=== PATIENT | male | born 1935 | race African-American/Black ===

== ENCOUNTER 2017-08-11 18:17 | Emergency (ER) | payer OTHER ==
[~2017-08-11] VITALS: Ht 162.6 cm; Wt 74.4 kg
[~2017-08-11 18:17] MED LIST: ALBU0.63 NEB; BREO ELLIPTA 21 EACH INH; DOXY100T PO; FLUT1DIS3 INH; HYDR-2758 PO; IPRA3AMP NEB; LEVO500T59 PO; METH4TAB2 PO; NAPR-695 PO; OMAL150V SQ; PRED-220 PO; PRED20TA PO; PROAIR HFA8.5 GM IH; TAMS0.4C97 PO
[2017-08-11] MEDS ORDERED: IPRATRPIUM/ALBUTEROL 0.5/2.5MG 3 ML NEBU. NEB ONE (18:45)
[2017-08-11] MEDS ORDERED: methylPREDNISolone SOD SUCC PF 125 MG/2 ML VIAL. IV ONE (18:45)
[2017-08-11 19:08] LABS: BASO % 1 % (0-3); EOS % 10 % (0-3); HEMATOCRIT 37.3 % (39.0-53.0); HEMOGLOBIN 12.3 g/dL (13.0-17.5); LYMPH # 1.4 x10^3/uL (1.0-4.8); LYMPH % 29 % (24-48); MEAN CORPUSCULAR HEMOGLOBIN 29 pg (25-35); MEAN CORPUSCULAR HGB CONC 33 g/dL (31-37); MEAN CORPUSCULAR VOLUME 89 fL (79-100); MONO % 12 % (0-9); NEUT % 49 % (31-73); PLATELET COUNT 216 x10^3/uL (140-400); RED BLOOD COUNT 4.21 x10^6/uL (4.30-5.70); RED CELL DISTRIBUTION WIDTH 14.2 % (11.5-14.5); WHITE BLOOD COUNT 4.7 x10^3/uL (4.0-11.0)
[2017-08-11 19:22] LABS: CALCIUM 9.3 mg/dL (8.5-10.1); CREATININE 0.9 mg/dL (0.7-1.3); GFR 98.2; POTASSIUM 3.3 mmol/L (3.5-5.1)
[2017-08-11 19:30] VITALS: BP 136/70
[2017-08-11] MEDS ORDERED: PRED50TA PO (19:37)
[2017-08-11] MEDS ORDERED: BUDE10.2 IH (19:37)
--- NOTE | 2017-08-11 19:38 | PHYS DOC ---
Past Medical History Past Medical History: COPD, Other Additional Past Medical Histor: prostate Past Surgical History: Other Additional Past Surgical Histo: right hand; colonoscopy Alcohol Use: None Drug Use: None Adult General Chief Complaint Chief Complaint: SHORTNESS OF BREATH HPI HPI Patient is a 82 year old gentleman who presents here today complaining of shortness of breath. Patient has a past medical history significant for asthma. Patient has any hypertension diabetes liver kidney problems. Patient denies any prior abdominal or chest surgeries. Patient does have a history of prostate problems in the past. Patient reports that over the last several days has been having increasing shortness of breath despite utilizing his medications. Patient reports he ran out of his Symbicort approximately 3 days ago. He reports he saw his PCP approximately one week ago was started on antibiotics reports today he had no improvement. He came to the ER for further evaluation. Patient reports she's had a nonproductive cough for approximately 3-4 days. Patient has any fevers shakes chills nausea vomiting or diarrhea. Patient denies any lower extremity edema. Patient has any history of PE or DVT in the past. Patient has any orthopnea or PND that's the ordinary for himself. Patient reports symptoms he is having today are highly consistent with his prior asthma exacerbations. Patient is denying any chest discomfort. Patient reports that he does feel short of breath and describes a fullness in his chest that he describes as similar to what he's had when he's been short of breath in the past with his asthma. Patient denies any pain radiating down his left arm and jaw or back. Patient has any diaphoresis. Review of Systems Review of Systems Review of systems Constitutional: Denies fever or chills Eyes: Denies change in visual acuity, redness, or eye pain HENT: Denies nasal congestion or sore throat Current Medications Current Medications Current Medications Medications (Trade) Dose Ordered Sig/Ailyn Start Time Stop Time Status Last Admin Dose Admin Albuterol/ Ipratropium (Duoneb) 9 ml 1X ONCE 08/11/17 18:45 08/11/17 18:59 DC 08/11/17 19:13 9 ML Methylprednisolone Sodium Succinate (SOLU-Medrol 125MG VIAL) 125 mg 1X ONCE 08/11/17 18:45 08/11/17 18:59 DC 08/11/17 19:07 125 MG Allergies Allergies Allergies Coded Allergies Type Severity Reaction Last Updated Verified Penicillins Adverse Reaction Severe seizures 07/19/17 Yes Physical Exam Physical Exam Review of systems Constitutional: Denies fever or chills Eyes: Denies change in visual acuity, redness, or eye pain HENT: Denies nasal congestion or sore throat Physical exam Constitutional: Well developed, well nourished, no acute distress, non-toxic appearance. HENT: Normocephalic, atraumatic, bilateral external ears normal, oropharynx moist, no oral exudates, nose normal. Eyes: PERRLA, EOMI, conjunctiva normal, no discharge. Neck: Normal range of motion, no tenderness, supple, no stridor. Cardiovascular:Heart rate regular rhythm, Lungs & Thorax: Diffuse inspiratory and expiratory wheezing. Abdomen: Bowel sounds normal, soft, no tenderness, no masses, no pulsatile masses. Skin: Warm, dry, no erythema, no rash. Back: No tenderness, no CVA tenderness. Extremities: No tenderness, no cyanosis, no clubbing, ROM intact, no edema. Neurologic: Alert and oriented X 3, normal motor function, normal sensory function, no focal deficits noted. Psychologic: Affect normal, judgement normal, mood normal. Current Patient Data Vital Signs Vital Signs Date Time Temp Pulse Resp B/P (MAP) Pulse Ox O2 Delivery O2 Flow Rate FiO2 08/11/17 19:14 92 Room Air 08/11/17 18:24 97.8 92 26 172/84 (113) 97.8 Lab Values Laboratory Tests Test 08/11/17 18:50 White Blood Count 4.7 x10^3/uL (4.0-11.0) Red Blood Count 4.21 x10^6/uL (4.30-5.70) L Hemoglobin 12.3 g/dL (13.0-17.5) L Hematocrit 37.3 % (39.0-53.0) L Mean Corpuscular Volume 89 fL (79-100) Mean Corpuscular Hemoglobin 29 pg (25-35) Mean Corpuscular Hemoglobin Concent 33 g/dL (31-37) Red Cell Distribution Width 14.2 % (11.5-14.5) Platelet Count 216 x10^3/uL (140-400) Neutrophils (%) (Auto) 49 % (31-73) Lymphocytes (%) (Auto) 29 % (24-48) Monocytes (%) (Auto) 12 % (0-9) H Eosinophils (%) (Auto) 10 % (0-3) H Basophils (%) (Auto) 1 % (0-3) Neutrophils # (Auto) 2.3 x10^3uL (1.8-7.7) Lymphocytes # (Auto) 1.4 x10^3/uL (1.0-4.8) Monocytes # (Auto) 0.6 x10^3/uL (0.0-1.1) Eosinophils # (Auto) 0.4 x10^3/uL (0.0-0.7) Basophils # (Auto) 0.0 x10^3/uL (0.0-0.2) Sodium Level 144 mmol/L (136-145) Potassium Level 3.3 mmol/L (3.5-5.1) L Chloride Level 105 mmol/L (98-107) Carbon Dioxide Level 31 mmol/L (21-32) Anion Gap 8 (6-14) Blood Urea Nitrogen 13 mg/dL (8-26) Creatinine 0.9 mg/dL (0.7-1.3) Estimated GFR (Cockcroft-Gault) 98.2 BUN/Creatinine Ratio 14 (6-20) Glucose Level 108 mg/dL (70-99) H Calcium Level 9.3 mg/dL (8.5-10.1) Total Bilirubin Pending Aspartate Amino Transferase (AST) Pending Alanine Aminotransferase (ALT) Pending Alkaline Phosphatase Pending Total Protein Pending Albumin Pending Albumin/Globulin Ratio Pending Laboratory Tests 08/11/17 18:50 Laboratory Tests 08/11/17 18:50 EKG EKG []EKG reveals normal sinus rhythm at a heart rate of [address]-T wave abnormalities no evidence of ST elevation VT as interpreted by ER physician. Chest x-ray reveals normal heart size no infiltrates or effusions. Lungs are hyperinflated consistent with COPD. As interpreted by LENO Galeas Radiology/Procedures Radiology/Procedures [] Course & Med Decision Making Course & Med Decision Making Pertinent Labs and Imaging studies reviewed. (See chart for details) []This is an 82-year-old otherwise healthy gentleman who presents here today secondary to an asthma exacerbation. Patient did receive DuoNeb's 3 as well as sign Medrol IV in the ER with significant relief in his discomfort and shortness of breath. Patient reports he currently feels better than his baseline. Patient does not feel that admission is necessary at this time and is requesting to be discharged home now. Patient be discharged home with prescription for Symbicort and instructions to follow-up with primary care physician within one to 2 days for reevaluation. Patient understands to return the ER if his shortness of breath returns. Patient does not have any evidence of be consistent with VT, PE, CHF. Dragon Disclaimer Dragon Disclaimer This electronic medical record was generated, in whole or in part, using a voice recognition dictation system. Departure Departure Impression: Primary Impression: COPD exacerbation Disposition: HOME, SELF-CARE Condition: IMPROVED Referrals: Brayan LOPEZ MD (PCP) Patient Instructions: Chronic Obstructive Pulmonary Disease Exacerbation Scripts Prednisone (PREDNISONE) 50 Mg Tablet 1 TAB PO DAILY, #5 TAB Prov: ANI HOLM MD 08/11/17 Budesonide/Formoterol Fumarate (SYMBICORT 160-4.5 MCG INHALER) 10.2 Gm Hfa.aer.ad 2 PUFF IH BID, #1 INHALER 5 Refills Prov: ANI HOLM MD 08/11/17 ANI HOLM MD Aug 11, 2017 19:38
[2017-08-11 19:40] LABS: ALBUMIN 3.6 g/dL (3.4-5.0); ALBUMIN/GLOBULIN RATIO 0.8 (1.0-1.7); TOTAL BILIRUBIN 0.5 mg/dL (0.2-1.0); TOTAL PROTEIN 7.9 g/dL (6.4-8.2)
--- NOTE | 2017-08-12 06:26 | EKG ---
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
--- NOTE | 2017-08-12 09:47 | RAD ---
EXAM: Chest 2 views. HISTORY: Chest pain and cough. COMPARISON: 01/18/2016. FINDINGS: Frontal and lateral views of the chest are obtained. There are no confluent infiltrates. Hyperinflation is consistent with chronic obstructive pulmonary disease. There is no pneumothorax or pleural effusion. The heart is not enlarged. IMPRESSION: 1. Chronic obstructive pulmonary disease. No confluent infiltrates.
== END 2017-08-11 19:49 | disposition home or self-care (01) ==
LOC: ER 18:17
DX: J44.1 Chronic obstructive pulmonary disease with (acute) exacerbation (principal); Z88.0 Allergy status to penicillin
CPT/HCPCS: 36415; 71020; 80053; 84484; 85025; 93005; 94640; 96374; 99285; J2930; J7620

== ENCOUNTER 2017-10-03 15:59 | Emergency (ER) | payer OTHER ==
[~2017-10-03] VITALS: Ht 162.6 cm; Wt 74.8 kg
[~2017-10-03 15:59] MED LIST changes: +BUDE10.2 IH; +PRED50TA PO
[2017-10-03] MEDS ORDERED: IV NORMAL SALINE 1000ML BAG 1,000 ML IV SCH (16:28)
[2017-10-03] MEDS ORDERED: methylPREDNISolone SOD SUCC PF 125 MG/2 ML VIAL. IV ONE (16:30)
[2017-10-03] MEDS ORDERED: IPRATRPIUM/ALBUTEROL 0.5/2.5MG 3 ML NEBU. NEB ONE (16:30)
[2017-10-03 16:36] LABS: BASO % 1 % (0-3); EOS % 12 % (0-3); HEMATOCRIT 42.2 % (39.0-53.0); HEMOGLOBIN 13.6 g/dL (13.0-17.5); LYMPH # 1.6 x10^3/uL (1.0-4.8); LYMPH % 29 % (24-48); MEAN CORPUSCULAR HEMOGLOBIN 29 pg (25-35); MEAN CORPUSCULAR HGB CONC 32 g/dL (31-37); MEAN CORPUSCULAR VOLUME 90 fL (79-100); MONO % 9 % (0-9); NEUT % 49 % (31-73); PLATELET COUNT 242 x10^3/uL (140-400); RED BLOOD COUNT 4.71 x10^6/uL (4.30-5.70); RED CELL DISTRIBUTION WIDTH 15.4 % (11.5-14.5); WHITE BLOOD COUNT 5.4 x10^3/uL (4.0-11.0)
--- NOTE | 2017-10-03 16:39 | PHYS DOC ---
Past Medical History Past Medical History: COPD, Other Additional Past Medical Histor: enlarged prostate Past Surgical History: Other Additional Past Surgical Histo: right hand; colonoscopy Additional Information: quit smoking 25 years ago Alcohol Use: None Drug Use: None Adult General Chief Complaint Chief Complaint: SHORTNESS OF BREATH HPI HPI 82-year-old male with a history of COPD no longer smokes now presents the emergency department complaining of increased shortness of breath and wheezing. Patient uses 2 L home O2 as a baseline with which she's been compliant. Over the last 2 days he's had worsening wheezing with occasional cough. Patient denies significant productive cough or fever. He has no chest pain.. Patient feels recent wet weather may have triggered his COPD. No fevers chills sweats or shaking chills. Other than shortness of breath and wheezing patient otherwise feels well. Review of Systems Review of Systems Constitutional: Denies fever or chills [] Eyes: Denies change in visual acuity, redness, or eye pain [] HENT: Denies nasal congestion or sore throat [] Respiratory: As above per history of present illness Cardiovascular: No additional information not addressed in HPI [] GI: Denies abdominal pain, nausea, vomiting, bloody stools or diarrhea [] : Denies dysuria or hematuria [] Musculoskeletal: Denies back pain or joint pain [] Integument: Denies rash or skin lesions [] Neurologic: Denies headache, focal weakness or sensory changes [] Endocrine: Denies polyuria or polydipsia [] All other systems were reviewed and found to be within normal limits, except as documented in this note. Current Medications Current Medications Current Medications Medications (Trade) Dose Ordered Sig/Ailyn Start Time Stop Time Status Last Admin Dose Admin Albuterol/ Ipratropium (Duoneb) 3 ml 1X ONCE 10/03/17 16:30 10/03/17 16:32 DC 10/03/17 16:38 3 ML Methylprednisolone Sodium Succinate (SOLU-Medrol 125MG VIAL) 125 mg 1X ONCE 10/03/17 16:30 10/03/17 16:32 DC 10/03/17 17:01 125 MG Sodium Chloride 1,000 ml @ 999 mls/hr Q1H1M 10/03/17 16:28 10/04/17 16:27 10/03/17 17:01 999 MLS/HR Allergies Allergies Allergies Coded Allergies Type Severity Reaction Last Updated Verified Penicillins Adverse Reaction Severe seizures 09/23/17 Yes Physical Exam Physical Exam 82-year-old male mild tachypnea and bilateral bronchospasm with no rails rubs or rhonchi. 94% on baseline 2 L home O2. No clinical fever supple neck no tachycardia benign abdomen normal extremities with no edema and a nonfocal neurologic exam Constitutional: Well developed, well nourished, no acute distress, non-toxic appearance. [] HENT: Normocephalic, atraumatic, bilateral external ears normal, oropharynx moist, no oral exudates, nose normal. [] Eyes: PERRLA, EOMI, conjunctiva normal, no discharge. [] Neck: Normal range of motion, no tenderness, supple, no stridor. [] Cardiovascular:Heart rate regular rhythm, no murmur [] Lungs & Thorax: As above Abdomen: Bowel sounds normal, soft, no tenderness, no masses, no pulsatile masses. [] Skin: Warm, dry, no erythema, no rash. [] Back: No tenderness, no CVA tenderness. [] Extremities: No tenderness, no cyanosis, no clubbing, ROM intact, no edema. [] Neurologic: Alert and oriented X 3, normal motor function, normal sensory function, no focal deficits noted. [] Psychologic: Affect normal, judgement normal, mood normal. [] Current Patient Data Vital Signs Vital Signs Date Time Temp Pulse Resp B/P (MAP) Pulse Ox O2 Delivery O2 Flow Rate FiO2 10/03/17 16:40 92 Room Air 10/03/17 16:10 97.7 88 28 169/96 (120) 97.7 Lab Values Laboratory Tests Test 10/03/17 16:25 White Blood Count 5.4 x10^3/uL (4.0-11.0) Red Blood Count 4.71 x10^6/uL (4.30-5.70) Hemoglobin 13.6 g/dL (13.0-17.5) Hematocrit 42.2 % (39.0-53.0) Mean Corpuscular Volume 90 fL (79-100) Mean Corpuscular Hemoglobin 29 pg (25-35) Mean Corpuscular Hemoglobin Concent 32 g/dL (31-37) Red Cell Distribution Width 15.4 % (11.5-14.5) H Platelet Count 242 x10^3/uL (140-400) Neutrophils (%) (Auto) 49 % (31-73) Lymphocytes (%) (Auto) 29 % (24-48) Monocytes (%) (Auto) 9 % (0-9) Eosinophils (%) (Auto) 12 % (0-3) H Basophils (%) (Auto) 1 % (0-3) Neutrophils # (Auto) 2.7 x10^3uL (1.8-7.7) Lymphocytes # (Auto) 1.6 x10^3/uL (1.0-4.8) Monocytes # (Auto) 0.5 x10^3/uL (0.0-1.1) Eosinophils # (Auto) 0.6 x10^3/uL (0.0-0.7) Basophils # (Auto) 0.0 x10^3/uL (0.0-0.2) Sodium Level 141 mmol/L (136-145) Potassium Level 3.9 mmol/L (3.5-5.1) Chloride Level 104 mmol/L (98-107) Carbon Dioxide Level 30 mmol/L (21-32) Anion Gap 7 (6-14) Blood Urea Nitrogen 6 mg/dL (8-26) L Creatinine 0.8 mg/dL (0.7-1.3) Estimated GFR (Cockcroft-Gault) 112.5 Glucose Level 90 mg/dL (70-99) Calcium Level 10.1 mg/dL (8.5-10.1) Troponin I Quantitative < 0.017 ng/mL (0.000-0.055) Laboratory Tests 10/03/17 16:25 Laboratory Tests 10/03/17 16:25 EKG EKG EKG with normal sinus rhythm at 80 normal axis no STEMI interpreted by me[] Radiology/Procedures Radiology/Procedures [] Course & Med Decision Making Course & Med Decision Making Pertinent Labs and Imaging studies reviewed. (See chart for details) Signs and symptoms consistent with exacerbation of COPD in well-appearing patient with mild tachypnea no hypoxia an episode of bronchospasm typical for him. Steroids administered as well as nebulized therapy. Full workup pending and patient is being hydrated. We'll follow clinically and patient feels improved adequately to his baseline for outpatient treatment he'll be referred for outpatient follow-up with his doctor tomorrow. We'll prescribe prednisone and he will continue established therapy as needed. [] Dragon Disclaimer Dragon Disclaimer This electronic medical record was generated, in whole or in part, using a voice recognition dictation system. Departure Departure Impression: Primary Impression: COPD exacerbation Disposition: 01 HOME, SELF-CARE Condition: IMPROVED Referrals: Brayan LOPEZ MD (PCP) Additional Instructions: You've been experiencing an attack of your COPD. Your symptoms have improved with nebulized therapy and steroids. Rest and drink plenty of fluids. Wear your oxygen as previously prescribed. We've given you and antibiotic prescription called Zithromax to cover for the possibility of an early infection contributing to your wheezing and symptoms. This would be appropriate coverage for bronchitis pneumonia or atypical pneumonia also called walking pneumonia. Your chest x-ray showed no acute findings today and the remainder of your results were reassuring as well finish prednisone as prescribed once a day for 5 days starting tomorrow and follow-up with your doctor tomorrow as well. Return immediately for new severe worsening symptoms Scripts Prednisone (PREDNISONE) 50 Mg Tablet 1 TAB PO DAILY, #5 TAB Prov: NAIMA PADRON MD 10/03/17 Azithromycin (AZITHROMYCIN TABLET) 250 Mg Tablet 1 PKG PO UD, #6 TAB Take 2 pills the first day and one pill a day for the following 4 days Prov: NAIMA PADRON MD 10/03/17 NAIMA PADRON MD Oct 03, 2017 16:39
--- NOTE | 2017-10-03 16:52 | RAD ---
Portable chest, 10/03/2017: History: Shortness of breath Comparison is made to a study from 08/11/2017. The heart size and pulmonary vascularity are normal. No pulmonary infiltrates are seen. There is no evidence of pleural fluid. IMPRESSION: No acute cardiopulmonary abnormality is detected.
[2017-10-03 16:53] LABS: CALCIUM 10.1 mg/dL (8.5-10.1); CREATININE 0.8 mg/dL (0.7-1.3); GFR 112.5; POTASSIUM 3.9 mmol/L (3.5-5.1)
[2017-10-03] MEDS ORDERED: PRED50TA PO (17:56)
[2017-10-03] MEDS ORDERED: AZIT250T6 PO (17:56)
[2017-10-03 18:13] VITALS: BP 151/80
--- NOTE | 2017-10-04 06:29 | EKG ---
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
== END 2017-10-03 18:06 | disposition home or self-care (01) ==
LOC: ER 15:59
DX: J44.1 Chronic obstructive pulmonary disease with (acute) exacerbation (principal); N40.0 Benign prostatic hyperplasia without lower urinary tract symptoms; Z87.891 Personal history of nicotine dependence; Z88.0 Allergy status to penicillin
CPT/HCPCS: 36415; 71010; 80048; 84484; 85025; 93005; 94250; 94640; 96361; 96374; 99285; J2930; J7030; J7620

== ENCOUNTER 2017-11-25 13:06 | Inpatient (IN) | payer OTHER ==
[2017-11-25 13:41] LABS: BASO % 0 % (0-3); EOS % 0 % (0-3); HEMATOCRIT 41.6 % (39.0-53.0); HEMOGLOBIN 13.4 g/dL (13.0-17.5); LYMPH # 0.3 x10^3/uL (1.0-4.8); LYMPH % 5 % (24-48); MEAN CORPUSCULAR HEMOGLOBIN 29 pg (25-35); MEAN CORPUSCULAR HGB CONC 32 g/dL (31-37); MEAN CORPUSCULAR VOLUME 89 fL (79-100); MONO # 0.5 x10^3/uL (0.0-1.1); MONO % 8 % (0-9); NEUT # 6.3 x10^3uL (1.8-7.7); NEUT % 88 % (31-73); PLATELET COUNT 263 x10^3/uL (140-400); RED BLOOD COUNT 4.67 x10^6/uL (4.30-5.70); RED CELL DISTRIBUTION WIDTH 14.4 % (11.5-14.5); WHITE BLOOD COUNT 7.2 x10^3/uL (4.0-11.0)
[2017-11-25 13:50] LABS: ADD MAN DIFF? YES; ANION GAP 12 (6-14); BLOOD UREA NITROGEN 11 mg/dL (8-26); BUN/CREATININE RATIO 9 (6-20); CALCIUM 8.9 mg/dL (8.5-10.1); CARBON DIOXIDE 25 mmol/L (21-32); CHLORIDE 101 mmol/L (98-107); CREATININE 1.2 mg/dL (0.7-1.3); GFR 70.5; GLUCOSE 111 mg/dL (70-99); POTASSIUM 3.9 mmol/L (3.5-5.1); SODIUM 138 mmol/L (136-145)
[2017-11-25 13:56] LABS: ALBUMIN 3.3 g/dL (3.4-5.0); ALBUMIN/GLOBULIN RATIO 0.7 (1.0-1.7); ALK PHOS 65 U/L (46-116); ALT (SGPT) 12 U/L (16-63); AST (SGOT) 17 U/L (15-37); INR 1.1 (0.8-1.1); MAGNESIUM 1.7 mg/dL (1.8-2.4); PARTIAL THROMBOPLASTIN TIME 32 SEC (24-38); PROTHROMBIN TIME PATIENT 13.5 SEC (11.7-14.0); TOTAL BILIRUBIN 0.4 mg/dL (0.2-1.0)
[2017-11-25 14:00] LABS: TROPONINI < 0.017 ng/mL (0.000-0.055)
[2017-11-25 14:00] LABS: D-DIMER 0.39 ug/mlFEU (0.00-0.50)
[2017-11-25 14:02] LABS: NT-PRO BNP 110 pg/mL (0-449)
[2017-11-25] MEDS: methylPREDNISolone SOD SUCC PF 125 MG/2 ML VIAL. IV (14:11)
[2017-11-25] MEDS: ALBUTEROL SULFATE 2.5 MG/3 ML NEBU. NEB (14:12)
[2017-11-25] MEDS: IPRATRPIUM/ALBUTEROL 0.5/2.5MG 3 ML NEBU. NEB ×2 (14:13→23:00)
[2017-11-25 15:07] LABS: INFLUENZA A PATIENT NEGATIVE (NEGATIVE); INFLUENZA B PATIENT NEGATIVE (NEGATIVE); OBC FLU VALID
[2017-11-25] MEDS ORDERED: ONDANSETRON PF 4 MG/2 ML VIAL. IV (16:00)
[2017-11-25] MEDS: ALBUTEROL SULFATE 2.5 MG/3 ML NEBU. CONT NEB (16:51)
[2017-11-25] MEDS: HYDROcodone/APAP 5/325MG 1 TAB TABLET PO (17:03)
[2017-11-25] MEDS: FLUTICASONE 50MCG/NASAL SPRAY 16GM BOTTLE. NS (17:04)
[2017-11-25 17:15] LABS: % BANDS 7 % (0-9); % EOS 1 % (0-5); % LYMPHS 5 % (24-48); % MONOS 4 % (0-10); % SEGS 83 % (35-66); PLT ESTIMATE ADEQUATE (ADEQUATE)
[2017-11-26] MEDS: HYDROcodone/APAP 5/325MG 1 TAB TABLET PO (02:38)
[2017-11-26 04:27] LABS: ADD MAN DIFF? NO
[2017-11-26 04:30] LABS: BASO % 0 % (0-3); EOS % 0 % (0-3); HEMATOCRIT 38.7 % (39.0-53.0); HEMOGLOBIN 12.4 g/dL (13.0-17.5); LYMPH # 0.7 x10^3/uL (1.0-4.8); LYMPH % 7 % (24-48); MEAN CORPUSCULAR HEMOGLOBIN 29 pg (25-35); MEAN CORPUSCULAR HGB CONC 32 g/dL (31-37); MEAN CORPUSCULAR VOLUME 89 fL (79-100); MONO # 0.4 x10^3/uL (0.0-1.1); MONO % 5 % (0-9); NEUT # 8.6 x10^3uL (1.8-7.7); NEUT % 88 % (31-73); PLATELET COUNT 232 x10^3/uL (140-400); RED BLOOD COUNT 4.36 x10^6/uL (4.30-5.70); RED CELL DISTRIBUTION WIDTH 14.3 % (11.5-14.5); WHITE BLOOD COUNT 9.7 x10^3/uL (4.0-11.0)
[2017-11-26 05:03] LABS: ANION GAP 10 (6-14); BLOOD UREA NITROGEN 19 mg/dL (8-26); CARBON DIOXIDE 27 mmol/L (21-32); CHLORIDE 101 mmol/L (98-107); CREATININE 1.1 mg/dL (0.7-1.3); GFR 77.9; GLUCOSE 166 mg/dL (70-99); POTASSIUM 4.4 mmol/L (3.5-5.1); SODIUM 138 mmol/L (136-145)
[2017-11-26] MEDS ORDERED: IPRATRPIUM/ALBUTEROL 0.5/2.5MG 3 ML NEBU. (06:03)
[2017-11-26] MEDS: IPRATRPIUM/ALBUTEROL 0.5/2.5MG 3 ML NEBU. NEB ×4 (06:10→19:36)
[2017-11-26] MEDS ORDERED: DEXTROSE 50% 25 GM / 50ML DISP.SYRIN. IV (08:45)
[2017-11-26] MEDS: ZOLPIDEM 5 MG TABLET. PO ×2 (10:52→20:36)
[2017-11-26] MEDS: CLOBETASOL EMOLLIENT 0.05% TOPICAL CREAM 15GM TUBE. TP ×2 (11:00→20:36)
[2017-11-26 11:13] LABS: POC GLUCOSE 132 mg/dL (70-99)
[2017-11-26] MEDS: INSULIN ASPART 300 UNITS/3 ML INSULN.PEN SQ ×2 (11:34→17:11)
[2017-11-26] MEDS: methylPREDNISolone SOD SUCC PF 40 MG/ML VIAL. IV ×2 (11:43→20:36)
[2017-11-26] MEDS: BUDESONIDE 0.5 MG/2 ML NEBU. NEB ×2 (12:15→19:36)
[2017-11-26 16:40] LABS: POC GLUCOSE 182 mg/dL (70-99)
[2017-11-26] MEDS: TAMSULOSIN 0.4 MG CAP.ER.24H. PO (20:36)
[2017-11-27] MEDS: ALBUTEROL SULFATE 2.5 MG/3 ML NEBU. NEB (00:19)
[2017-11-27] MEDS: methylPREDNISolone SOD SUCC PF 40 MG/ML VIAL. IV ×2 (05:41→20:32)
[2017-11-27 08:15] LABS: POC GLUCOSE 153 mg/dL (70-99)
[2017-11-27] MEDS ORDERED: TAMSULOSIN 0.4 MG CAP.ER.24H. PO (09:00)
[2017-11-27] MEDS: CLOBETASOL EMOLLIENT 0.05% TOPICAL CREAM 15GM TUBE. TP ×2 (09:02→20:32)
[2017-11-27] MEDS: INSULIN ASPART 300 UNITS/3 ML INSULN.PEN SQ ×3 (09:08→17:25)
[2017-11-27] MEDS: IPRATRPIUM/ALBUTEROL 0.5/2.5MG 3 ML NEBU. NEB ×4 (09:13→19:14)
[2017-11-27] MEDS: BUDESONIDE 0.5 MG/2 ML NEBU. NEB ×2 (09:14→19:10)
[2017-11-27 11:25] LABS: POC GLUCOSE 155 mg/dL (70-99)
[2017-11-27] MEDS: BENZOCAINE/MENTHOL LOZENGE. PO ×2 (13:28→17:09)
[2017-11-27 16:32] LABS: POC GLUCOSE 170 mg/dL (70-99)
[2017-11-27] MEDS: AZITHROMYCIN 250 MG TABLET. PO (17:09)
[2017-11-27] MEDS: LACTOBACILLUS RHAMNOSUS GG 1 CAPSULE. PO (20:32)
[2017-11-27] MEDS: ZOLPIDEM 5 MG TABLET. PO (20:32)
[2017-11-27] MEDS: TAMSULOSIN 0.4 MG CAP.ER.24H. PO (20:32)
[2017-11-27 21:09] LABS: POC GLUCOSE 141 mg/dL (70-99)
[2017-11-28] MEDS: IPRATRPIUM/ALBUTEROL 0.5/2.5MG 3 ML NEBU. NEB (07:25)
[2017-11-28] MEDS: BUDESONIDE 0.5 MG/2 ML NEBU. NEB (07:25)
[2017-11-28 07:58] LABS: POC GLUCOSE 131 mg/dL (70-99)
[2017-11-28] MEDS: INSULIN ASPART 300 UNITS/3 ML INSULN.PEN SQ (08:00)
[2017-11-28] MEDS: HYDROcodone/APAP 5/325MG 1 TAB TABLET PO (08:42)
[2017-11-28] MEDS: AZITHROMYCIN 250 MG TABLET. PO (08:43)
[2017-11-28] MEDS: LACTOBACILLUS RHAMNOSUS GG 1 CAPSULE. PO (08:43)
[2017-11-28] MEDS: methylPREDNISolone SOD SUCC PF 40 MG/ML VIAL. IV (08:43)
[2017-11-28] MEDS: CLOBETASOL EMOLLIENT 0.05% TOPICAL CREAM 15GM TUBE. TP (08:47)
[2017-11-28] MEDS ORDERED: MAG HYDROX/ALUMINUM HYD/SIMETH 30 ML ORAL.SUSP PO (09:00)
== END 2017-11-28 11:37 | disposition home or self-care (01) | DRG 189 ==
LOC: ER 13:06 → ED HOLD 16:28 → 5 NORTH 21:16
DX: J96.21 Acute and chronic respiratory failure with hypoxia (principal); J44.1 Chronic obstructive pulmonary disease with (acute) exacerbation; Z99.81 Dependence on supplemental oxygen; K59.00 Constipation, unspecified; N40.0 Benign prostatic hyperplasia without lower urinary tract symptoms; M19.90 Unspecified osteoarthritis, unspecified site; T38.0X5A Adverse effect of glucocorticoids and synthetic analogues, initial encounter; Y92.89 Other specified places as the place of occurrence of the external cause; Z87.891 Personal history of nicotine dependence; Z80.9 Family history of malignant neoplasm, unspecified; Z79.52 Long term (current) use of systemic steroids; Z88.0 Allergy status to penicillin
CPT/HCPCS: 36415; 71045; 80048; 80053; 82962; 83735; 83880; 84484; 85007; 85025; 85379; 85610; 85730; 87804; 87804-59; 93005; 94618; 94640; 94644; 94760; 96374; 99285; 99285-25; J1815; J2920; J2930; J7613; J7620; J7626; Q0144

== ENCOUNTER 2018-01-19 23:10 | Emergency (ER) | payer OTHER ==
[2018-01-19 23:27] LABS: ADD MAN DIFF? NO
[2018-01-19 23:31] LABS: BASO # 0.1 x10^3/uL (0.0-0.2); BASO % 1 % (0-3); EOS # 0.6 x10^3/uL (0.0-0.7); EOS % 11 % (0-3); HEMOGLOBIN 14.4 g/dL (13.0-17.5); LYMPH # 1.7 x10^3/uL (1.0-4.8); LYMPH % 31 % (24-48); MEAN CORPUSCULAR HEMOGLOBIN 30 pg (25-35); MEAN CORPUSCULAR HGB CONC 34 g/dL (31-37); MEAN CORPUSCULAR VOLUME 88 fL (79-100); MONO # 0.7 x10^3/uL (0.0-1.1); MONO % 12 % (0-9); NEUT # 2.4 x10^3uL (1.8-7.7); NEUT % 44 % (31-73); PLATELET COUNT 291 x10^3/uL (140-400); RED BLOOD COUNT 4.88 x10^6/uL (4.30-5.70); RED CELL DISTRIBUTION WIDTH 14.2 % (11.5-14.5); WHITE BLOOD COUNT 5.4 x10^3/uL (4.0-11.0)
[2018-01-19] MEDS: IPRATRPIUM/ALBUTEROL 0.5/2.5MG 3 ML NEBU. NEB (23:31)
[2018-01-19] MEDS: methylPREDNISolone SOD SUCC PF 125 MG/2 ML VIAL. IV (23:43)
[2018-01-19 23:48] LABS: TROPONINI < 0.017 ng/mL (0.000-0.055)
[2018-01-19 23:49] LABS: ANION GAP 9 (6-14); BLOOD UREA NITROGEN 24 mg/dL (8-26); BUN/CREATININE RATIO 17 (6-20); CARBON DIOXIDE 30 mmol/L (21-32); CHLORIDE 102 mmol/L (98-107); CREATININE 1.4 mg/dL (0.7-1.3); GLUCOSE 109 mg/dL (70-99); POTASSIUM 3.9 mmol/L (3.5-5.1); SODIUM 141 mmol/L (136-145)
[2018-01-19 23:55] LABS: ALBUMIN 3.8 g/dL (3.4-5.0); ALBUMIN/GLOBULIN RATIO 0.9 (1.0-1.7); ALK PHOS 66 U/L (46-116); ALT (SGPT) 17 U/L (16-63); AST (SGOT) 20 U/L (15-37); TOTAL BILIRUBIN 0.5 mg/dL (0.2-1.0); TOTAL PROTEIN 8.1 g/dL (6.4-8.2)
[2018-01-20] MEDS: IPRATRPIUM/ALBUTEROL 0.5/2.5MG 3 ML NEBU. NEB (01:12)
[2018-01-20] MEDS: AZITHROMYCIN 250 MG TABLET. PO (01:55)
== END 2018-01-20 01:58 | disposition home or self-care (01) ==
LOC: ER 23:10
DX: J44.1 Chronic obstructive pulmonary disease with (acute) exacerbation (principal); Z87.891 Personal history of nicotine dependence; Z99.81 Dependence on supplemental oxygen; Z88.0 Allergy status to penicillin
CPT/HCPCS: 36415; 71045; 80053; 84484; 85025; 93005; 94640; 96374; 99285-25; J2930; J7620; Q0144

== ENCOUNTER → 2018-03-31 | Outpatient (CLI) | payer OTHER | END | disposition home or self-care (01) | LOC: RAD 13:32 | DX: J44.9 Chronic obstructive pulmonary disease, unspecified (principal); R07.89 Other chest pain | CPT/HCPCS: 71046 ==

== ENCOUNTER 2018-12-07 12:19 | Emergency (ER) | payer OTHER ==
[~2018-12-07] VITALS: Ht 167.6 cm; Wt 70.8 kg
[~2018-12-07 12:19] MED LIST changes: +ALBU2.5V8 IH; +ARFO15VI NEB; +AZIT250T PO; +AZIT250T6 PO; +CLOB15CR TP; -HYDR-2758 PO; +HYDR-2761 PO; +IBUP-1060 PO; -IPRA3AMP NEB; +IPRA3AMP29 NEB; -PROAIR HFA8.5 GM IH; +ZOLP5TAB PO
[2018-12-07] MEDS: methylPREDNISolone SOD SUCC PF 125 MG/2 ML VIAL. IV ONE (12:30)
[2018-12-07] MEDS: IPRATRPIUM/ALBUTEROL 0.5/2.5MG 3 ML NEBU. NEB ONE ×2 (12:41→14:58)
[2018-12-07] MEDS: ALBUTEROL SULFATE 2.5 MG/3 ML NEBU. CONT NEB ONE (12:42)
--- NOTE | 2018-12-07 12:56 | RAD ---
Exam performed: One view chest. Indication: COPD, ACUTE RESPIRATORY FAILURE Date of Service: 12/07/2018 12:24 PM Comparison: Two-view chest from 03/31/2018. Single AP upright portable view chest findings: Cardiomediastinal silhouette is within limits of normal. No acute infiltrates, effusion or pneumothorax is detected. The bony structures are normal. Impression: No acute cardiopulmonary process is detected. Electronically signed by: Maliha Sumner MD (12/07/2018 12:52 PM) [facility]
[2018-12-07 13:10] LABS: BASO # 0.1 x10^3/uL (0.0-0.2); BASO % 1 % (0-3); EOS # 0.4 x10^3/uL (0.0-0.7); EOS % 6 % (0-3); HEMATOCRIT 42.1 % (39.0-53.0); HEMOGLOBIN 14.1 g/dL (13.0-17.5); LYMPH # 1.2 x10^3/uL (1.0-4.8); LYMPH % 19 % (24-48); MEAN CORPUSCULAR HEMOGLOBIN 30 pg (25-35); MEAN CORPUSCULAR HGB CONC 33 g/dL (31-37); MEAN CORPUSCULAR VOLUME 89 fL (79-100); MONO # 0.5 x10^3/uL (0.0-1.1); MONO % 9 % (0-9); NEUT # 3.9 x10^3uL (1.8-7.7); NEUT % 65 % (31-73); PLATELET COUNT 282 x10^3/uL (140-400); RED BLOOD COUNT 4.75 x10^6/uL (4.30-5.70); WHITE BLOOD COUNT 6.1 x10^3/uL (4.0-11.0)
[2018-12-07 13:23] VITALS: BP 142/76
--- NOTE | 2018-12-07 13:56 | PHYS DOC ---
Past Medical History Past Medical History: COPD, Other Additional Past Medical Histor: enlarged prostate Past Surgical History: Other Additional Past Surgical Histo: right hand; colonoscopy Alcohol Use: None Drug Use: None Adult General Chief Complaint Chief Complaint: SHORTNESS OF BREATH HPI HPI Patient is a 83 year old male who presents with copd flare. She reports she has had increased coughing symptoms over the last 3-5 days. He comes to the ER today with acute respiratory distress which she states is secondary to COPD flare. He does have albuterol nebulized solution's at home but does not have any inhalers. He has been using his albuterol but states these did not help his symptoms. He denies chest pain. No fever or chills. His symptoms have been gradually worsening severely over the last 12 hours. Review of Systems Review of Systems Constitutional: Denies fever or chills Eyes: Denies change in visual acuity HENT: Denies nasal congestion Respiratory: as documented above Cardiovascular: No additional information not addressed in HPI GI: Denies abdominal pain, nausea : Denies dysuria Musculoskeletal: Denies back pain Integument: Denies rash or skin lesions Neurologic: Denies headache All other systems were reviewed and found to be within normal limits, except as documented in this note. Current Medications Current Medications Current Medications Medications (Trade) Dose Ordered Sig/Ailyn Start Time Stop Time Status Last Admin Dose Admin Albuterol Sulfate (Ventolin Neb Soln) 10 mg 1X ONCE 12/07/18 12:30 12/07/18 12:31 DC 12/07/18 12:42 10 MG Albuterol/ Ipratropium (Duoneb) 3 ml 1X ONCE 12/07/18 15:00 12/07/18 15:01 DC 12/07/18 14:58 3 ML Azithromycin (Zithromax) 500 mg 1X ONCE 12/07/18 15:00 12/07/18 15:01 DC 12/07/18 15:16 500 MG Methylprednisolone Sodium Succinate (SOLU-Medrol 125MG VIAL) 125 mg 1X ONCE 12/07/18 12:30 12/07/18 12:31 DC 12/07/18 12:30 125 MG Allergies Allergies Allergies Coded Allergies Type Severity Reaction Last Updated Verified Penicillins Allergy Severe seizures 11/28/18 Yes Physical Exam Physical Exam Constitutional: Well developed, well nourished, significant respiratory distress , non-toxic appearance HENT: Normocephalic, atraumatic, bilateral external ears normal, oropharynx moist, no oral exudates, nose normal Neck: Normal range of motion, no tenderness, supple, no JVD Cardiovascular:Heart rate regular rhythm, no murmur Lungs & Thorax: severely diminished air flow with wheezes in all chaudhary and prolonged expiratory phase, increased work of breathing Abdomen: Bowel sounds normal, soft, no tenderness Skin: Warm, dry, no erythema, no rash. Extremities: No edema Neurologic: Alert and oriented X 3 Psychologic: Affect normal Current Patient Data Vital Signs Vital Signs Date Time Temp Pulse Resp B/P (MAP) Pulse Ox O2 Delivery O2 Flow Rate FiO2 12/07/18 14:58 92 Room Air 12/07/18 13:23 94 14 142/76 (98) 2.0 12/07/18 12:20 98.1 98.1 Lab Values Laboratory Tests Test 12/07/18 12:50 12/07/18 13:40 White Blood Count 6.1 x10^3/uL (4.0-11.0) Red Blood Count 4.75 x10^6/uL (4.30-5.70) Hemoglobin 14.1 g/dL (13.0-17.5) Hematocrit 42.1 % (39.0-53.0) Mean Corpuscular Volume 89 fL (79-100) Mean Corpuscular Hemoglobin 30 pg (25-35) Mean Corpuscular Hemoglobin Concent 33 g/dL (31-37) Red Cell Distribution Width 14.0 % (11.5-14.5) Platelet Count 282 x10^3/uL (140-400) Neutrophils (%) (Auto) 65 % (31-73) Lymphocytes (%) (Auto) 19 % (24-48) L Monocytes (%) (Auto) 9 % (0-9) Eosinophils (%) (Auto) 6 % (0-3) H Basophils (%) (Auto) 1 % (0-3) Neutrophils # (Auto) 3.9 x10^3uL (1.8-7.7) Lymphocytes # (Auto) 1.2 x10^3/uL (1.0-4.8) Monocytes # (Auto) 0.5 x10^3/uL (0.0-1.1) Eosinophils # (Auto) 0.4 x10^3/uL (0.0-0.7) Basophils # (Auto) 0.1 x10^3/uL (0.0-0.2) Sodium Level 139 mmol/L (136-145) Potassium Level 4.1 mmol/L (3.5-5.1) Chloride Level 104 mmol/L (98-107) Carbon Dioxide Level 30 mmol/L (21-32) Anion Gap 5 (6-14) L Blood Urea Nitrogen 15 mg/dL (8-26) Creatinine 0.9 mg/dL (0.7-1.3) Estimated GFR (Cockcroft-Gault) 98.0 Glucose Level 97 mg/dL (70-99) Calcium Level 9.9 mg/dL (8.5-10.1) Troponin I Quantitative < 0.017 ng/mL (0.000-0.055) Laboratory Tests 12/07/18 12:50 Laboratory Tests 12/07/18 13:40 EKG EKG No STEMI Interpretation Time: 13:15 Radiology/Procedures Radiology/Procedures CXR: no acute. Course & Med Decision Making Course & Med Decision Making Pertinent Labs and Imaging studies reviewed. (See chart for details) Patient was evaluated immediately on arrival to the ER. He had acute COPD flare. Patient was borderline in need of BiPAP but did immediately receive a DuoNeb which improved his symptoms. In the ER, he had a chest x-ray which did not reveal any acute findings. He initially had one DuoNeb treatment followed by 1 hour-long nebulized treatment of albuterol. His symptoms improved dramatically. His lab panel did not reveal any acute elevation of troponin or leukocytosis. His EKG was nonacute. Ultimately, the patient's lungs were much improved and he was subjectively improved. He was ambulated about the department and did not have any desaturations below 94%. He was maintained on his normal home oxygen regimen of 2 L per nasal cannula. Patient was discharged to home. He was placed on azithromycin over the next 5 days along with a prednisone burst. Patient was advised to follow-up with his primary care doctor or return to the ER for any new or worsening symptoms. He was accompanied by a family member today who drove him home. Dragon Disclaimer Dragon Disclaimer This electronic medical record was generated, in whole or in part, using a voice recognition dictation system. Departure Departure Disposition: ADMITTED INPATIENT Condition: GOOD Referrals: Brayan LOPEZ MD (PCP) Scripts Azithromycin (AZITHROMYCIN TABLET) 250 Mg Tablet 250 MG PO DAILY for ANTI-BIOTIC, #4 TAB 0 Refills Prov: EMMA ARAUJO DO 12/07/18 Prednisone (PREDNISONE) 50 Mg Tablet 1 TAB PO DAILY, #5 TAB Prov: EMMA ARAUJO DO 12/07/18 EMMA ARAUJO DO Dec 07, 2018 13:56
[2018-12-07 14:19] LABS: CALCIUM 9.9 mg/dL (8.5-10.1); CREATININE 0.9 mg/dL (0.7-1.3); POTASSIUM 4.1 mmol/L (3.5-5.1)
[2018-12-07] MEDS ORDERED: PRED50TA PO (14:41)
[2018-12-07] MEDS ORDERED: AZIT250T6 PO (14:50)
[2018-12-07] MEDS: AZITHROMYCIN 250 MG TABLET. PO ONE (15:16)
--- NOTE | 2018-12-07 17:02 | EKG ---
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
== END 2018-12-07 15:10 | disposition home or self-care (01) ==
LOC: ER 12:19
DX: J44.1 Chronic obstructive pulmonary disease with (acute) exacerbation (principal); Z88.0 Allergy status to penicillin
CPT/HCPCS: 36415; 71045; 80048; 84484; 85025; 93005; 94640; 94644; 96374; J2930; J7613; J7620; Q0144; 99285-25

== ENCOUNTER 2020-08-23 12:48 | Emergency (ER) | payer OTHER, MEDICAID ==
[~2020-08-23] VITALS: Ht 162.6 cm; Wt 68.0 kg
[~2020-08-23 12:48] MED LIST changes: +CYAN-25 PO
[2020-08-23] MEDS ORDERED: methylPREDNISolone SOD SUCC PF 125 MG/2 ML VIAL. IV ONE (13:15)
[2020-08-23] MEDS ORDERED: IPRATRPIUM/ALBUTEROL 0.5/2.5MG 3 ML NEBU. NEB ONE (13:15)
[2020-08-23 13:33] LABS: BASO % 0 % (0-3); EOS # 0.6 x10^3/uL (0.0-0.7); EOS % 10 % (0-3); HEMATOCRIT 42.6 % (39.0-53.0); HEMOGLOBIN 14.1 g/dL (13.0-17.5); LYMPH # 0.9 x10^3/uL (1.0-4.8); LYMPH % 15 % (24-48); MEAN CORPUSCULAR HEMOGLOBIN 29 pg (25-35); MEAN CORPUSCULAR HGB CONC 33 g/dL (31-37); MEAN CORPUSCULAR VOLUME 88 fL (79-100); MONO # 0.5 x10^3/uL (0.0-1.1); MONO % 9 % (0-9); NEUT # 3.8 x10^3/uL (1.8-7.7); NEUT % 66 % (31-73); PLATELET COUNT 271 x10^3/uL (140-400); RED BLOOD COUNT 4.85 x10^6/uL (4.30-5.70); RED CELL DISTRIBUTION WIDTH 14.8 % (11.5-14.5); WHITE BLOOD COUNT 5.8 x10^3/uL (4.0-11.0)
[2020-08-23 13:40] LABS: BASE EXCESS ABG 2 mmol/L (-3-3); HCO3 ABG 27 mmol/L (21-28); PCO2 ABG 44 mmHg (35-46); PO2 ABG 65 mmHg (65-108); SAT O2 ABG 93 % (92-99)
--- NOTE | 2020-08-23 13:43 | RAD ---
CHEST AP ONLY Clinical indications: Shortness of air COMPARISON: December 07, 2018. Findings: No acute lung infiltrate or pleural effusion or pulmonary edema or lung mass or pneumothorax is seen. The heart size, pulmonary vasculature, mediastinum and both dallin are unremarkable. Impression: No acute radiographic abnormality is seen. Electronically signed by: Basilio Rea MD (08/23/2020 1:40 PM) [id number]
[2020-08-23 13:45] LABS: FIO2 ABG Room Air
[2020-08-23 13:48] LABS: PROTHROMBIN TIME PATIENT 11.9 SEC (11.7-14.0)
[2020-08-23 13:52] LABS: CALCIUM 9.8 mg/dL (8.5-10.1); GFR 86.3; POTASSIUM 4.2 mmol/L (3.5-5.1)
[2020-08-23 13:58] LABS: ALBUMIN 3.6 g/dL (3.4-5.0); ALBUMIN/GLOBULIN RATIO 0.8 (1.0-1.7); TOTAL BILIRUBIN 0.6 mg/dL (0.2-1.0); TOTAL PROTEIN 8.3 g/dL (6.4-8.2)
--- NOTE | 2020-08-23 14:07 | PHYS DOC ---
Past Medical History Past Medical History: COPD, Other Additional Past Medical Histor: enlarged prostate Past Surgical History: Other Additional Past Surgical Histo: right hand; colonoscopy Smoking Status: Former Smoker Alcohol Use: None Drug Use: None General Adult EDM: Chief Complaint: SHORTNESS OF BREATH HPI: HPI: Patient is a 85 year old male who was sent here from his pulmonology clinic due to trouble breathing. Patient had trouble breathing for about 4 days. Patient has COPD, he is on oxygen at home from 2 TO 4 L NEEDED. Patient denies any cough or fever. Patient has been tested multiple times for COVID-19 and all negative. Patient denies any abdominal pain, no chest pain, no nausea vomiting. Review of Systems: Review of Systems: Constitutional: Denies fever or chills. [] Eyes: Denies change in visual acuity. [] HENT: Denies nasal congestion or sore throat. [] Respiratory: No cough, positive for trouble breathing Cardiovascular: Denies chest pain or edema. [] GI: Denies abdominal pain, nausea, vomiting, bloody stools or diarrhea. [] : Denies dysuria. [] Musculoskeletal: Denies back pain or joint pain. [] Integument: Denies rash. [] Neurologic: Denies headache, focal weakness or sensory changes. [] Endocrine: Denies polyuria or polydipsia. [] Lymphatic: Denies swollen glands. [] Psychiatric: Denies depression or anxiety. [] Heart Score: Risk Factors: Risk Factors: DM, Current or recent (<one month) smoker, HTN, HLP, family history of CAD, obesity. Risk Scores: Score 0 - 3: 2.5% MACE over next 6 weeks - Discharge Home Score 4 - 6: 20.3% MACE over next 6 weeks - Admit for Clinical Observation Score 7 - 10: 72.7% MACE over next 6 weeks - Early Invasive Strategies Current Medications: Current Medications Medications (Trade) Dose Ordered Sig/Ailyn Start Time Stop Time Status Last Admin Dose Admin Albuterol/ Ipratropium (Duoneb) 3 ml 1X ONCE 08/23/20 13:15 08/23/20 13:16 DC 08/23/20 13:31 3 ML Methylprednisolone Sodium Succinate (SOLU-Medrol 125MG VIAL) 125 mg 1X ONCE 08/23/20 13:15 08/23/20 13:16 DC 08/23/20 13:22 125 MG Allergies: Allergies: Allergies Coded Allergies Type Severity Reaction Last Updated Verified Penicillins Allergy Severe seizures 08/12/20 Yes Physical Exam: PE: Constitutional: Well developed, well nourished, no acute distress, non-toxic appearance. [] HENT: Normocephalic, atraumatic, bilateral external ears normal, oropharynx moist, no oral exudates, nose normal. [] Eyes: PERRLA, EOMI, conjunctiva normal, no discharge. [] Neck: Normal range of motion, no tenderness, supple, no stridor. [] Cardiovascular:Heart rate regular rhythm, no murmur [] Lungs & Thorax: Bilateral breath sounds with wheezing, decreased air movement. Abdomen: Bowel sounds normal, soft, no tenderness, no masses, no pulsatile masses. [] Skin: Warm, dry, no erythema, no rash. [] Back: No tenderness, no CVA tenderness. [] Extremities: No tenderness, no cyanosis, no clubbing, ROM intact, no edema. [] Neurologic: Alert and oriented X 3, normal motor function, normal sensory function, no focal deficits noted. [] Psychologic: Affect normal, judgement normal, mood normal. [] Current Patient Data: Labs: Laboratory Tests Test 08/23/20 13:15 08/23/20 13:30 White Blood Count 5.8 x10^3/uL (4.0-11.0) Red Blood Count 4.85 x10^6/uL (4.30-5.70) Hemoglobin 14.1 g/dL (13.0-17.5) Hematocrit 42.6 % (39.0-53.0) Mean Corpuscular Volume 88 fL (79-100) Mean Corpuscular Hemoglobin 29 pg (25-35) Mean Corpuscular Hemoglobin Concent 33 g/dL (31-37) Red Cell Distribution Width 14.8 % (11.5-14.5) H Platelet Count 271 x10^3/uL (140-400) Neutrophils (%) (Auto) 66 % (31-73) Lymphocytes (%) (Auto) 15 % (24-48) L Monocytes (%) (Auto) 9 % (0-9) Eosinophils (%) (Auto) 10 % (0-3) H Basophils (%) (Auto) 0 % (0-3) Neutrophils # (Auto) 3.8 x10^3/uL (1.8-7.7) Lymphocytes # (Auto) 0.9 x10^3/uL (1.0-4.8) L Monocytes # (Auto) 0.5 x10^3/uL (0.0-1.1) Eosinophils # (Auto) 0.6 x10^3/uL (0.0-0.7) Basophils # (Auto) 0.0 x10^3/uL (0.0-0.2) Sodium Level 137 mmol/L (136-145) Potassium Level 4.2 mmol/L (3.5-5.1) Chloride Level 101 mmol/L (98-107) Carbon Dioxide Level 30 mmol/L (21-32) Anion Gap 6 (6-14) Blood Urea Nitrogen 8 mg/dL (8-26) Creatinine 1.0 mg/dL (0.7-1.3) Estimated GFR (Cockcroft-Gault) 86.3 BUN/Creatinine Ratio 8 (6-20) Glucose Level 100 mg/dL (70-99) H Calcium Level 9.8 mg/dL (8.5-10.1) Magnesium Level 2.3 mg/dL (1.8-2.4) Total Bilirubin 0.6 mg/dL (0.2-1.0) Aspartate Amino Transferase (AST) 21 U/L (15-37) Alanine Aminotransferase (ALT) 18 U/L (16-63) Alkaline Phosphatase 70 U/L (46-116) Troponin I Quantitative < 0.017 ng/mL (0.000-0.055) UO-Lgi-H-Type Natriuretic Peptide 39 pg/mL (0-449) Total Protein 8.3 g/dL (6.4-8.2) H Albumin 3.6 g/dL (3.4-5.0) Albumin/Globulin Ratio 0.8 (1.0-1.7) L O2 Saturation 93 % (92-99) Arterial Blood pH 7.40 (7.35-7.45) Arterial Blood pCO2 at Patient Temp 44 mmHg (35-46) Arterial Blood pO2 at Patient Temp 65 mmHg (65-108) Arterial Blood HCO3 27 mmol/L (21-28) Arterial Blood Base Excess 2 mmol/L (-3-3) FiO2 Room air Laboratory Tests 08/23/20 13:15 Laboratory Tests 08/23/20 13:15 Vital Signs: Vital Signs Date Time Temp Pulse Resp B/P (MAP) Pulse Ox O2 Delivery O2 Flow Rate FiO2 08/23/20 13:31 92 Room Air 08/23/20 13:04 98.4 102 32 138/87 (104) 98.4 EKG: EKG: EKG was done at 1309, heart rate of 100 bpm, sinus rhythm, no ST segment elevation. Radiology/Procedures: Radiology/Procedures: [][facility] [address] [place] [address] IMAGING REPORT Signed PATIENT: CAREY CARLISLE ACCOUNT: [id number] : 1935 LOCATION: ER AGE: 85 SEX: M EXAM STATUS: REG ER ORD. PHYSICIAN: JORJE CARDONA DO REASON: SOA PROCEDURE: CHEST AP ONLY CHEST AP ONLY Clinical indications: Shortness of air COMPARISON: December 07, 2018. Findings: No acute lung infiltrate or pleural effusion or pulmonary edema or lung mass or pneumothorax is seen. The heart size, pulmonary vasculature, mediastinum and both dallin are unremarkable. Impression: No acute radiographic abnormality is seen. Electronically signed by: Concepcion Rea MD (08/23/2020 1:40 PM) [id number] DICTATED and SIGNED BY: CONCEPCION REA MD DATE: 08/23/20 1340 Course & Med Decision Making: Course & Med Decision Making Pertinent Labs and Imaging studies reviewed. (See chart for details) Patient is an 85-year-old male who was evaluated in the ER due to COPD exacerbation. Patient is on oxygen at home, he has oxygen at home. Patient was given treatment in the ER, he feels much better now. Patient did not want to stay in the hospital he said he want to go home. Patient denies any chest pain or any trouble breathing at this time. His oxygen saturation is 95% on 2 L. Patient is on 2 to 4 L of oxygen at home as needed. patient has oxygen at home. Dragon Disclaimer: Dragon Disclaimer: This electronic medical record was generated, in whole or in part, using a voice recognition dictation system. Departure Departure Impression: Primary Impression: COPD exacerbation Disposition: 01 HOME, SELF-CARE Condition: IMPROVED Referrals: Brayan LOPEZ MD (PCP) BAILEY GOULD MD PLEASE CALL YOUR LUNG DOCTOR FOR FOLLOW UP THIS WEEK Patient Instructions: Chronic Obstructive Pulmonary Disease Exacerbation Additional Instructions: Thank you for visiting our Emergency Department. We appreciate you trusting us with your care. If any additional problems come up don't hesitate to return to visit us. Please follow up with your primary care provider so they can plan additional care if needed and know about the problem that you had. If symptoms worsen come back to the Emergency Department. Any concerning symptoms that start such as chest pain, shortness of air, weakness or numbness on one side of the body, running high fevers or any other concerning symptoms return to the ER. Scripts Prednisone (PREDNISONE) 20 Mg Tablet 2 TAB PO DAILY for 5 Days, #10 TAB Prov: JORJE CARDONA DO 08/23/20 JORJE CARDONA DO Aug 23, 2020 14:07
[2020-08-23] MEDS ORDERED: PRED20TA PO (14:32)
[2020-08-23 14:43] VITALS: BP 134/79
== END 2020-08-23 14:51 | disposition home or self-care (01) ==
LOC: ER 12:48
DX: J44.1 Chronic obstructive pulmonary disease with (acute) exacerbation (principal); Z87.891 Personal history of nicotine dependence; Z88.0 Allergy status to penicillin
CPT/HCPCS: 36415; 36600; 71045; 80053; 82805; 83735; 83880; 84484; 85025; 85610; 85730; 93005; 94640; 96374; 99285; J2930

== ENCOUNTER → 2021-01-12 | Outpatient (CLI) | payer OTHER, MEDICAID ==
[2021-01-04 11:55] VITALS: BP 141/63
[~2021-01-12] MED LIST changes: +ACET325T21 PO; +BUSP5TAB PO; +CEFD300C PO; +DOCU-153 PO; +FINA1TAB3 PO; +GUAI100L12 PO; +IBUP800T19 PO; +LACT1CAP19 PO; +LACT20SO PO; +MAG30ORA2 PO
--- NOTE | 2021-01-12 16:29 | KCIC ---
EXAM: CT Abdomen and Pelvis without IV contrast CLINICAL HISTORY: Evaluate for inguinal hernia, Rt groin pain. COMPARISON: none TECHNIQUE: Helical CT of the abdomen and pelvis without intravenous contrast. Axial, coronal and sagi ttal reformatted images were generated. PQRS compliance statement - One or more of the following individualized dose reduction techniques wer e utilized for this study: 1. Automated exposure control 2. Adjustment of the mA and/or kV according to patient size 3. Use of iterative reconstruction technique FINDINGS: Lack of intravenous contrast limits evaluation of solid organs, vasculature, and lymph nodes. Lower chest: Lung bases are clear. Abdomen and Pelvis: Subcentimeter hypodense left hepatic lobe lesion is too small to accurately characterize. Low-density lesion in the inferior right hepatic lobe too small to accurately characterize, likely cystic. Gallbladder is normal. No biliary ductal dilatation. Pancreas is unremarkable. Calcified granuloma ar e seen within the spleen. Adrenal glands are normal. Punctate nonobstructing renal calculi bilaterally. Left lower pole renal cyst is seen. Otherwise no f ocal renal lesion. No hydronephrosis. No hydroureter. Diffuse bladder wall thickening likely cystitis or from chronic outlet obstruction. Lateral bladder wall diverticulum. Deformity of the dependent wa ll of the bladder likely from enlarged prostate. Colonic diverticulosis. No CT evidence for acute diverticulitis. Moderate to large volume colonic sto ol content is seen. No small or large bowel dilatation. No bowel obstruction. Appendix is normal. Sma ll bowel feces sign within the terminal ileum. Fat-containing inguinal hernias bilaterally. Vascular calcifications are seen. Aorta is normal in sanya iber. No abdominal or pelvic ascites. No abdominal or pelvic lymphadenopathy. However prominent right ingui nal lymph nodes are seen, loss prevention representative lymph node measures 2 x 0.9 cm. 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 Decreased bone min eral density. IMPRESSION: 1. Moderate to large volume colonic stool content can be correlated for possible constipation. No konrad wel obstruction. 2. Colonic diverticulosis without evidence for acute diverticulitis. 3. Small inguinal hernias bilaterally containing only fat. 4. Prominent right inguinal lymph nodes. 5. Lateral thickening may be seen chronic outlet obstruction or cystitis. Prostate is enlarged. 6. 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 Electronically signed by: West Herrera MD (01/12/2021 4:26 PM) [id number]
== END ==
LOC: KCIC CT 14:06
PROVIDERS: ATTEND Family Medicine
DX: K40.90 Unilateral inguinal hernia, without obstruction or gangrene, not specified as recurrent (principal); K57.30 Diverticulosis of large intestine without perforation or abscess without bleeding; N20.0 Calculus of kidney; M87.859 Other osteonecrosis, unspecified femur; M16.0 Bilateral primary osteoarthritis of hip
CPT/HCPCS: 74176

== ENCOUNTER 2021-02-13 15:01 | Emergency (ER) | payer OTHER, MEDICAID ==
[~2021-02-13] VITALS: Ht 162.6 cm; Wt 76.1 kg
[~2021-02-13 15:01] MED LIST changes: -ACET325T21 PO; -BUSP5TAB PO; -CEFD300C PO; -DOCU-153 PO; -FINA1TAB3 PO; -GUAI100L12 PO; -IBUP800T19 PO; -LACT1CAP19 PO; -MAG30ORA2 PO
[2021-02-13 15:38] LABS: BASO % 0 % (0-3); EOS % 0 % (0-3); HEMATOCRIT 38.1 % (39.0-53.0); HEMOGLOBIN 12.5 g/dL (13.0-17.5); LYMPH # 0.5 x10^3/uL (1.0-4.8); LYMPH % 6 % (24-48); MEAN CORPUSCULAR HEMOGLOBIN 29 pg (25-35); MEAN CORPUSCULAR HGB CONC 33 g/dL (31-37); MEAN CORPUSCULAR VOLUME 89 fL (79-100); MONO % 11 % (0-9); NEUT # 7.2 x10^3/uL (1.8-7.7); NEUT % 82 % (31-73); PLATELET COUNT 195 x10^3/uL (140-400); RED CELL DISTRIBUTION WIDTH 14.8 % (11.5-14.5); WHITE BLOOD COUNT 8.8 x10^3/uL (4.0-11.0)
[2021-02-13 15:47] LABS: BILIRUBIN,URINE NEGATIVE (NEG); CLARITY,URINE CLEAR; COLOR,URINE YELLOW; NITRITE,URINE NEGATIVE (NEG); PH,URINE 5.5 (<5.0-8.0); PROTEIN,URINE NEGATIVE (NEG-TRACE); UROBILINOGEN,URINE 0.2 mg/dL (0.2 mg/dL)
[2021-02-13 15:55] LABS: WBC,URINE 0 /HPF (0-4)
[2021-02-13 15:56] LABS: BACTERIA,URINE 0 /HPF (0-FEW)
--- NOTE | 2021-02-13 16:14 | RAD ---
Chest AP portable at 1543: Reason for examination: Bilateral lower extremity swelling. Comparison is made to previous study dated 12/24/2020. The heart size is normal. Mediastinum is unremarkable. Lung chaudhary are clear. No acute bony abnormali ties are seen. Impression: No acute cardiopulmonary disease. Electronically signed by: Melina Oh MD (02/13/2021 4:11 PM) [facility]
[2021-02-13 16:16] LABS: BARBITURATES NEG (NEG); BENZODIAZEPINES NEG (NEG); CANNABINOIDS NEG (NEG); COCAINE NEG (NEG); METHADONE NEG (NEG); OPIATES NEG (NEG); PHENCYCLIDINE NEG (NEG)
[2021-02-13 16:18] LABS: ALBUMIN 3.1 g/dL (3.4-5.0); ALBUMIN/GLOBULIN RATIO 0.9 (1.0-1.7); CALCIUM 9.3 mg/dL (8.5-10.1); CREATININE 5.7 mg/dL (0.7-1.3); GFR 11.6; MAGNESIUM 2.5 mg/dL (1.8-2.4); TOTAL BILIRUBIN 0.7 mg/dL (0.2-1.0); TOTAL PROTEIN 6.7 g/dL (6.4-8.2)
[2021-02-13 16:18] LABS: AMPHETAMINE/METHAMPHETAMINE NEG (NEG)
[2021-02-13 16:23] LABS: POTASSIUM 4.8 mmol/L (3.5-5.1)
--- NOTE | 2021-02-13 16:58 | RAD ---
CT abdomen pelvis without contrast 02/13/2021. Comparison made to 01/12/2021. CLINICAL INDICATION: Urinary retention. History of BPH. TECHNIQUE: Axial imaging the abdomen pelvis performed without the administration of IV or oral contrast. One or more of the following individualized dose reduction techniques were utilized for this examinat ion: 1. Automated exposure control 2. Adjustment of the mA and/or kV according to patient size 3. Use of iterative reconstruction technique. Findings: Limited images of lung bases are clear. Heart size is upper limits of normal. No pleural or pericardi al effusion. Solid abdominal viscera not well evaluated in the absence of contrast material. No apparent attenuati on abnormality of the liver, spleen, pancreas, adrenal glands or gallbladder. There is a 2 mm calcifi c stone at the lower pole right kidney. No ureteral stone or hydronephrosis. Unopacified GI tract normal in caliber and contour. No focal bowel wall thickening. The appendix is n ormal in caliber. There are scattered diverticula throughout the colon. No paracolonic inflammatory c hanges. No free fluid or lymphadenopathy. Abdominal aorta normal in caliber. Images of pelvis show nondistended urinary bladder. There is mild diffuse bladder wall thickening. Fo renae catheter in place. The prostate gland is mildly enlarged. No free fluid or pelvic lymphadenopathy . Small bilateral inguinal hernia containing only fat. There are couple of borderline enlarged bilate ral inguinal lymph nodes, nonspecific Bone windows show no acute findings. Multilevel spondylosis. IMPRESSION: 1 Right-sided nephrolithiasis, nonobstructive. 2. Normal appendix. 3. Mild wall thickening of the urinary bladder, nonspecific. Consider acute or chronic cystitis. 4. Prostatomegaly. 5. Diverticulosis. Electronically signed by: Shmuel Hernandez MD (02/13/2021 4:55 PM) [facility]
--- NOTE | 2021-02-13 17:13 | EKG ---
[facility] [address] [place] [address] Test Date: 2021-02-13 Test Time: 15:49:22 Pat Name: CAREY CARLISLE Department: Room: Gender: M Administration Dean: : 1935 Requested By: NIDIA NEWMAN Order Number: [id number] Reading MD: Measurements Intervals [place] Rate: 80 P: 90 VT: 146 QRS: 39 QRSD: 70 T: 66 QT: 334 QTc: 388 Interpretive Statements SINUS RHYTHM NO SPECIFIC ECG ABNORMALITIES RI6.01 No previous ECG available for comparison
[2021-02-13 19:00] LABS: CALCIUM 9.4 mg/dL (8.5-10.1); CREATININE 3.7 mg/dL (0.7-1.3); GFR 19.1; POTASSIUM 4.4 mmol/L (3.5-5.1)
--- NOTE | 2021-02-13 19:27 | PHYS DOC ---
Past Medical History Past Medical History: CHF, COPD Additional Past Medical Histor: ENLARGED PROSTATE, RESPIRATORY FAILURE (NIDIA NEWMAN BLUEPRINTER) Past Surgical History: Other Additional Past Surgical Histo: right hand; colonoscopy (NIDIA NEWMAN BLUEPRINTER) Smoking Status: Former Smoker Alcohol Use: None Drug Use: None (NIDIA NEWMAN APRN) General Adult EDM: Chief Complaint: URINARY RETENTION HPI: HPI: Patient is a 85 year old male with a history of COPD on oxygen 2 L at home, CHF, BPH, who presents today to be evaluated for urinary retention. Patient states she has not voided for 1 week. Patient states he feels that his lower abdomen is distended and has swelling to bilateral lower extremities. Patient denies any chest pain. Reports chronic shortness of breath. (NIDIA NEWMAN BLUEPRINTER) Review of Systems: Review of Systems: Constitutional: Denies fever or chills. [] Eyes: Denies change in visual acuity. [] HENT: Denies nasal congestion or sore throat. [] Respiratory: Reports chronic shortness of breath. Denies cough Cardiovascular: Denies chest pain or edema. [] GI: Denies abdominal pain, nausea, vomiting, bloody stools or diarrhea. [] : Reports urinary retention. Denies dysuria. [] Musculoskeletal: Denies back pain or joint pain. [] Integument: Denies rash. [] Neurologic: Denies headache, focal weakness or sensory changes. [] Psychiatric: Denies depression or anxiety. [] (NIDIA NEWMAN BLUEPRINTER) Heart Score: C/O Chest Pain: N/A Risk Factors: Risk Factors: DM, Current or recent (<one month) smoker, HTN, HLP, family history of CAD, obesity. Risk Scores: Score 0 - 3: 2.5% MACE over next 6 weeks - Discharge Home Score 4 - 6: 20.3% MACE over next 6 weeks - Admit for Clinical Observation Score 7 - 10: 72.7% MACE over next 6 weeks - Early Invasive Strategies (NIDIA NEWMAN BLUEPRINTER) Allergies: Allergies: Allergies Coded Allergies Type Severity Reaction Last Updated Verified No Known Medication Allergies Allergy Unknown 02/01/21 Yes Penicillins Adverse Reaction Intermediate seizures 02/01/21 Yes (NIDIA NEWMAN BLUEPRINTER) Physical Exam: PE: Constitutional: Well developed, well nourished, no acute distress, non-toxic appearance. [] HENT: Normocephalic, atraumatic, bilateral external ears normal, oropharynx moist, no oral exudates, nose normal. [] Eyes: PERRLA, EOMI, conjunctiva normal, no discharge. [] Neck: Normal range of motion, no tenderness, supple, no stridor. [] Cardiovascular:Heart rate regular rhythm, no murmur [] Lungs & Thorax: Diminished breath sounds to posterior lung bases Abdomen: Distended bladder on physical exam. Bowel sounds normal, soft, no tenderness, no masses, no pulsatile masses. [] Skin: Warm, dry, no erythema, no rash. [] Back: No tenderness, no CVA tenderness. [] Extremities: No tenderness, no cyanosis, no clubbing, ROM intact, edema noted from the penis all the way to bilateral lower extremities. Neurologic: Alert and oriented X 3, normal motor function, normal sensory function, no focal deficits noted. [] Psychologic: Affect normal, judgement normal, mood normal. [] (NIDIA NEWMAN APRN) Current Patient Data: Labs: Laboratory Tests Test 02/13/21 15:17 02/13/21 15:38 02/13/21 18:36 White Blood Count 8.8 x10^3/uL (4.0-11.0) Red Blood Count 4.30 x10^6/uL (4.30-5.70) Hemoglobin 12.5 g/dL (13.0-17.5) L Hematocrit 38.1 % (39.0-53.0) L Mean Corpuscular Volume 89 fL (79-100) Mean Corpuscular Hemoglobin 29 pg (25-35) Mean Corpuscular Hemoglobin Concent 33 g/dL (31-37) Red Cell Distribution Width 14.8 % (11.5-14.5) H Platelet Count 195 x10^3/uL (140-400) Neutrophils (%) (Auto) 82 % (31-73) H Lymphocytes (%) (Auto) 6 % (24-48) L Monocytes (%) (Auto) 11 % (0-9) H Eosinophils (%) (Auto) 0 % (0-3) Basophils (%) (Auto) 0 % (0-3) Neutrophils # (Auto) 7.2 x10^3/uL (1.8-7.7) Lymphocytes # (Auto) 0.5 x10^3/uL (1.0-4.8) L Monocytes # (Auto) 1.0 x10^3/uL (0.0-1.1) Eosinophils # (Auto) 0.0 x10^3/uL (0.0-0.7) Basophils # (Auto) 0.0 x10^3/uL (0.0-0.2) Sodium Level 130 mmol/L (136-145) L 133 mmol/L (136-145) L Potassium Level 4.8 mmol/L (3.5-5.1) 4.4 mmol/L (3.5-5.1) Chloride Level 92 mmol/L (98-107) L 99 mmol/L (98-107) Carbon Dioxide Level 26 mmol/L (21-32) 26 mmol/L (21-32) Anion Gap 12 (6-14) 8 (6-14) Blood Urea Nitrogen 32 mg/dL (8-26) H 27 mg/dL (8-26) H Creatinine 5.7 mg/dL (0.7-1.3) H 3.7 mg/dL (0.7-1.3) H Estimated GFR (Cockcroft-Gault) 11.6 19.1 BUN/Creatinine Ratio 6 (6-20) Glucose Level 116 mg/dL (70-99) H 96 mg/dL (70-99) Lactic Acid Level 1.2 mmol/L (0.4-2.0) Calcium Level 9.3 mg/dL (8.5-10.1) 9.4 mg/dL (8.5-10.1) Magnesium Level 2.5 mg/dL (1.8-2.4) H Total Bilirubin 0.7 mg/dL (0.2-1.0) Aspartate Amino Transferase (AST) 44 U/L (15-37) H Alanine Aminotransferase (ALT) 25 U/L (16-63) Alkaline Phosphatase 57 U/L (46-116) Troponin I Quantitative < 0.017 ng/mL (0.000-0.055) < 0.017 ng/mL (0.000-0.055) [id number]-Type Natriuretic Peptide 240 pg/mL (0-449) Total Protein 6.7 g/dL (6.4-8.2) Albumin 3.1 g/dL (3.4-5.0) L Albumin/Globulin Ratio 0.9 (1.0-1.7) L Procalcitonin < 0.10 ng/mL (0.00-0.10) Thyroid Stimulating Hormone (TSH) 0.485 uIU/mL (0.358-3.74) Urine Collection Type U cath Urine Color Yellow Urine Clarity Clear Urine pH 5.5 (<5.0-8.0) Urine Specific Pearson 1.010 (1.000-1.030) Urine Protein Negative mg/dL (NEG-TRACE) Urine Glucose (UA) Negative mg/dL (NEG) Urine Ketones (Stick) Negative mg/dL (NEG) Urine Blood Moderate (NEG) Urine Nitrite Negative (NEG) Urine Bilirubin Negative (NEG) Urine Urobilinogen Dipstick 0.2 mg/dL (0.2 mg/dL) Urine Leukocyte Esterase Negative (NEG) Urine RBC 3-5 /HPF (0-2) Urine WBC 0 /HPF (0-4) Urine Squamous Epithelial Cells Few /LPF Urine Transitional Epithelial Cells Few /LPF Urine Bacteria 0 /HPF (0-FEW) Urine Mucus Slight /LPF Urine Opiates Screen Neg (NEG) Urine Methadone Screen Neg (NEG) Urine Barbiturates Neg (NEG) Urine Phencyclidine Screen Neg (NEG) Urine Amphetamine/Methamphetamine Neg (NEG) Urine Benzodiazepines Screen Neg (NEG) Urine Cocaine Screen Neg (NEG) Urine Cannabinoids Screen Neg (NEG) Urine Ethyl Alcohol Neg (NEG) Laboratory Tests 02/13/21 15:17 Laboratory Tests 02/13/21 15:17 02/13/21 18:36 Vital Signs: Vital Signs Date Time Temp Pulse Resp B/P (MAP) Pulse Ox O2 Delivery O2 Flow Rate FiO2 02/13/21 15:01 98.8 81 39 151/76 (101) 93 Room Air 98.8 (NIDIA NEWMAN BLUEPRINTER) EKG: EK interpreted by Dr. Esquivel sinus rhythm heart rate 80 no STEMI [] [address] Henao sinus rhythm HR 86 no STEMI (NIDIA NEWMAN BLUEPRINTER) Radiology/Procedures: Radiology/Procedures: []PROCEDURE: CT ABDOMEN PELVIS WO CONTRAST CT abdomen pelvis without contrast 02/13/2021. Comparison made to 01/12/2021. CLINICAL INDICATION: Urinary retention. History of BPH. TECHNIQUE: Axial imaging the abdomen pelvis performed without the administration of IV or oral contrast. One or more of the following individualized dose reduction techniques were utilized for this examination: 1. Automated exposure control 2. Adjustment of the mA and/or kV according to patient size 3. Use of iterative reconstruction technique. Findings: Limited images of lung bases are clear. Heart size is upper limits of normal. No pleural or pericardial effusion. Solid abdominal viscera not well evaluated in the absence of contrast material. No apparent attenuation abnormality of the liver, spleen, pancreas, adrenal glands or gallbladder. There is a 2 mm calcific stone at the lower pole right kidney. No ureteral stone or hydronephrosis. Unopacified GI tract normal in caliber and contour. No focal bowel wall thickening. The appendix is normal in caliber. There are scattered diverticula throughout the colon. No paracolonic inflammatory changes. No free fluid or lymphadenopathy. Abdominal aorta normal in caliber. Images of pelvis show nondistended urinary bladder. There is mild diffuse bladder wall thickening. Campo catheter in place. The prostate gland is mildly enlarged. No free fluid or pelvic lymphadenopathy. Small bilateral inguinal hernia containing only fat. There are couple of borderline enlarged bilateral inguinal lymph nodes, nonspecific Bone windows show no acute findings. Multilevel spondylosis. IMPRESSION: 1 Right-sided nephrolithiasis, nonobstructive. 2. Normal appendix. 3. Mild wall thickening of the urinary bladder, nonspecific. Consider acute or chronic cystitis. 4. Prostatomegaly. 5. Diverticulosis. Electronically signed by: Shmuel Hernandez MD (02/13/2021 4:55 PM) [facility] DICTATED and SIGNED BY: SHMUEL HERNANDEZ MD DATE: 02/13/21 [id number] PROCEDURE: PORTABLE CHEST 1V Chest AP portable at 1543: Reason for examination: Bilateral lower extremity swelling. Comparison is made to previous study dated 12/24/2020. The heart size is normal. Mediastinum is unremarkable. Lung chaudhary are clear. No acute bony abnormalities are seen. Impression: No acute cardiopulmonary disease. Electronically signed by: Cathleen Freeman MD (02/13/2021 4:11 PM) [facility] DICTATED and SIGNED BY: CATHLEEN FREEMAN MD DATE: 02/13/21 [id number] (NIDIA NEWMAN BLUEPRINTER) Course & Med Decision Making: Course & Med Decision Making Pertinent Labs and Imaging studies reviewed. (See chart for details) This is a 85-year-old male patient with history of COPD, BPH, presenting today complaining of urinary retention for 1 week. Bladder volume scan was done at the bedside which shows patient has greater than 2000 cc of urine, Campo catheter was placed with over 2000 cc of urine noted right away. CBC with a normal WBC, hemoglobin 12.5 with a hematocrit of 38.1. CMP with creatinine of 5.7, BUN of 32. Campo catheter draining adequately. BMP was repeated, creatinine 3.7 with BUN of 27. EKG is negative, chest x-ray is negative CT of the abdomen and pelvic without contrast Right-sided nephrolithiasis, nonobstructive.Normal appendix. Mild wall thickening of the urinary bladder, nonspecific. Consider acute or chronic cystitis. Prostatomegaly. Diverticulosis. Spoke with Dr. Oneill who recommended we transfer patient to hospital with urology services Spoke with the [facility], they stated they did not have any beds available Spoke with [facility] transfer line, patient was accepted pending Covid test. If patient is positive for Covid they will go to [facility], if patient is negative for Covid will go to [facility] Negative rapid Covid test Spoke with the transfer line, patient was accepted in the [facility] bed and accepting physician [address] Henao (NIDIA NEWMAN BLUEPRINTER) Course & Med Decision Making I assumed care of patient as attending this physician. I reviewed patient's case with EXERCISE TEACHER who is primarily managing patient and reviewed ER work-up. At time I was starting my shift, patient was pending transfer to outside facility for hospital admission and urology consultation. I agreed with plan of care so far and proposed plan of care for hospital transfer for admission. This patient required critical care. Due to the fact that the patient required a significant amount of one on one physician - patient contact time, ordering and review of studies, arranging urgent treatment with development of a management plan, evaluation of patients response to treatment with frequent reassessments, and discussions with other providers this patient required 20 minutes of critical care time. Critical care time was indicated due to the inherent instability and/or potential for instability in this patient. The critical care time that is allocated to this patient is above and beyond any time spent on any other billable procedures performed on this patient. Electronically signed, Michael Henao DO (MICHAEL HENAO DO) Heydi Disclaimer: Heydi Disclaimer: This electronic medical record was generated, in whole or in part, using a voice recognition dictation system. (NIDIA NEWMAN APRN) Departure Departure Impression: Primary Impression: Acute urinary retention Additional Impression: Acute renal failure Qualified Codes: N17.9 - Acute kidney failure, unspecified Disposition: 05 DC/TRF OTHER TYPE INSTITUTI Condition: STABLE Referrals: Brayan LOPEZ MD (PCP) NIDIA NEWMAN APRN Feb 13, 2021 19:27 MICHAEL HENAO DO Feb 18, 2021 08:29
[2021-02-14] MEDS ORDERED: IPRATRPIUM/ALBUTEROL 0.5/2.5MG 3 ML NEBU. NEB ONE
[2021-02-14] MEDS ORDERED: IPRATROPIUM/ALBUTEROL 20/100mcg/INH INHALER. INH SCH (00:10)
--- NOTE | 2021-02-14 01:00 | EKG ---
[facility] [address] [place] [address] Test Date: 2021-02-13 Test Time: 21:43:21 Pat Name: CAREY CARLISLE Department: Room: Gender: M [employer]: : [id number] Requested By: MICHAEL HENAO Order Number: [id number] Reading MD: Measurements Intervals [place] Rate: 86 P: 71 MA: 138 QRS: 43 QRSD: 70 T: 63 QT: 324 QTc: 390 Interpretive Statements SINUS RHYTHM NORMAL ECG RI6.01 No previous ECG available for comparison
[2021-02-14 01:42] VITALS: BP 138/78
== END 2021-02-14 01:55 | disposition short-term general hospital (02) ==
LOC: ER 15:01
DX: N17.9 Acute kidney failure, unspecified (principal); R33.9 Retention of urine, unspecified; Z20.822 Contact with and (suspected) exposure to COVID-19; J44.9 Chronic obstructive pulmonary disease, unspecified; I50.9 Heart failure, unspecified; Z98.890 Other specified postprocedural states; Z87.891 Personal history of nicotine dependence; Z88.0 Allergy status to penicillin; Z88.8 Allergy status to other drugs, medicaments and biological substances
CPT/HCPCS: 36415; 51702; 71045; 74176; 80048; 80053; 80307; 81001; 83605; 83735; 83880; 84145; 84443; 84484; 85025; 87040; 87426; 93005; 99291; C9803; U0003; U0005; 99285

== ENCOUNTER 2021-10-26 19:07 | Emergency (ER) | payer OTHER, MEDICAID ==
[~2021-10-26] VITALS: Ht 175.3 cm; Wt 80.0 kg
[~2021-10-26 19:07] MED LIST changes: +ACET325T21 PO; +BUSP5TAB PO; +CEFD300C PO; +DOCU-148 PO; +FINA1TAB3 PO; +FINA5TAB PO; +GUAI100L12 PO; +IBUP800T19 PO; +LACT1CAP19 PO; +MAG30ORA2 PO
[2021-10-26] MEDS ORDERED: IPRATRPIUM/ALBUTEROL 0.5/2.5MG 3 ML NEBU. NEB ONE (19:45)
[2021-10-26 20:33] LABS: BASO % 0 % (0-3); EOS % 0 % (0-3); HEMATOCRIT 38.6 % (39.0-53.0); HEMOGLOBIN 12.7 g/dL (13.0-17.5); LYMPH # 0.2 x10^3/uL (1.0-4.8); LYMPH % 3 % (24-48); MEAN CORPUSCULAR HEMOGLOBIN 29 pg (25-35); MEAN CORPUSCULAR HGB CONC 33 g/dL (31-37); MEAN CORPUSCULAR VOLUME 89 fL (79-100); MONO % 1 % (0-9); NEUT # 5.8 x10^3/uL (1.8-7.7); NEUT % 97 % (31-73); PLATELET COUNT 354 x10^3/uL (140-400); RED BLOOD COUNT 4.34 x10^6/uL (4.30-5.70); RED CELL DISTRIBUTION WIDTH 14.2 % (11.5-14.5)
[2021-10-26 20:41] LABS: CALCIUM 8.5 mg/dL (8.5-10.1); CREATININE 1.2 mg/dL (0.7-1.3); GFR 69.8; POTASSIUM 3.2 mmol/L (3.5-5.1)
[2021-10-26 20:47] LABS: ALBUMIN 2.9 g/dL (3.4-5.0); ALBUMIN/GLOBULIN RATIO 0.7 (1.0-1.7); MAGNESIUM 1.8 mg/dL (1.8-2.4); PHOSPHORUS 3.4 mg/dL (2.6-4.7); TOTAL BILIRUBIN 0.1 mg/dL (0.2-1.0); TOTAL PROTEIN 6.9 g/dL (6.4-8.2)
[2021-10-26 20:55] LABS: CREATINE KINASE 65 U/L (39-308)
--- NOTE | 2021-10-26 20:58 | RAD ---
EXAM: AP View of the chest DATE: 10/26/2021 7:58 PM INDICATION: Reason: Shortness of breath / Spl. Instructions: / History: COMPARISON: 08/07/2021 FINDINGS: Cardiomediastinal stable. Linear opacities left lung base likely scarring/atelectasis. Emphysematous changes are seen. No pleural effusion or pneumothorax. IMPRESSION: 1. Linear opacities left lung base likely scarring/atelectasis. Electronically signed by: West Herrera MD (10/26/2021 8:56 PM) JACKIE
[2021-10-26] MEDS ORDERED: methylPREDNISolone SOD SUCC PF 125 MG/2 ML VIAL. IV ONE (21:00)
[2021-10-26 21:17] LABS: BILIRUBIN,URINE NEGATIVE (NEG); CLARITY,URINE CLEAR; COLOR,URINE YELLOW; NITRITE,URINE NEGATIVE (NEG); PROTEIN,URINE NEGATIVE (NEG-TRACE); UROBILINOGEN,URINE 0.2 mg/dL (0.2 mg/dL)
[2021-10-26 21:21] LABS: AMORPHOUS SEDIMENT,UR PRESENT /HPF; HYALINE CASTS, URINE FEW /HPF; RBC,URINE 0 /HPF (0-2)
[2021-10-26 21:22] LABS: BACTERIA,URINE 0 /HPF (0-FEW); GRANULAR CASTS,URINE OCCASIONAL /HPF
[2021-10-26] MEDS ORDERED: ALBUTEROL SULFATE 2.5 MG/3 ML NEBU. ONE (21:23)
[2021-10-26] MEDS ORDERED: ALBUTEROL SULFATE 2.5 MG/3 ML NEBU. CONT NEB ONE (21:30)
[2021-10-26 22:15] LABS: % LYMPHS 2 % (24-48); % MONOS 1 % (0-10); % SEGS 97 % (35-66)
[2021-10-26 22:16] LABS: PLT ESTIMATE ADEQUATE (ADEQUATE)
[2021-10-26] MEDS ORDERED: POTASSIUM CHLORIDE 20 MEQ TABLET.ER. PO ONE (22:45)
--- NOTE | 2021-10-26 23:20 | RAD ---
INDICATION: Reason: Bilateral foot swelling with pain rule out lower extremity DVT / Spl. Instruction s: / History: COMPARISON: None. TECHNIQUE: Grayscale, color and doppler ultrasound images were obtained of the bilateral lower extrem ity venous vasculature. RIGHT: No thrombus identified in the common femoral vein, femoral vein, popliteal vein or visualized calf ve ins. LEFT: No thrombus identified in the common femoral vein, femoral vein, popliteal vein or visualized calf ve ins. IMPRESSION: * No thrombus identified in deep venous system of bilateral lower extremities. Electronically signed by: Tha Sparks MD (10/26/2021 11:17 PM) [id number]
--- NOTE | 2021-10-26 23:35 | PHYS DOC ---
Past Medical History Past Medical History: CHF, COPD Additional Past Medical Histor: ENLARGED PROSTATE, RESPIRATORY FAILURE Past Surgical History: Other Additional Past Surgical Histo: right hand; colonoscopy Smoking Status: Never Smoker Alcohol Use: None Drug Use: None General Adult EDM: Chief Complaint: LOWER EXTREMITY SWELLING HPI: HPI: Patient is a 86-year-old male who presents to the emergency department complaining of increased shortness of breath and bilateral foot swelling with pain today that started just prior to arrival to the emergency department. Patient denies chest pains or chest discomfort or chest palpitations. Denies nausea, vomiting, diarrhea or abdominal pains. Patient reports he normally would not have, but his son wanted him to be here to make sure he did not have blood clots in his legs. Patient denies recent fever or chills, denies receiving the COVID-19 virus vaccine series. denies other physical complaints or physical concerns. Review of Systems: Review of Systems: 14 body systems of review of systems have been reviewed. See HPI for pertinent positives and negative responses, otherwise all other systems are negative, nonpertinent or noncontributory. Constitutional: Negative except as outlined in HPI above. Skin: Negative except as outlined in HPI above. Eyes: Negative except as outlined in HPI above. HENT: Negative except as outlined in HPI above. Respiratory: Negative except as outlined in HPI above. Cardiovascular: Negative except as outlined in HPI above. GI: Negative except as outlined in HPI above. : Negative except as outlined in HPI above. Musculoskeletal: Negative except as outlined in HPI above. Integument: Negative except as outlined in HPI above. Neurologic: Negative except as outlined in HPI above. Endocrine: Negative except as outlined in HPI above. Lymphatic: Negative except as outlined in HPI above. Psychiatric: Negative except as outlined in HPI above. Heart Score: C/O Chest Pain: No Risk Factors: Risk Factors: DM, Current or recent (<one month) smoker, HTN, HLP, family history of CAD, obesity. Risk Scores: Score 0 - 3: 2.5% MACE over next 6 weeks - Discharge Home Score 4 - 6: 20.3% MACE over next 6 weeks - Admit for Clinical Observation Score 7 - 10: 72.7% MACE over next 6 weeks - Early Invasive Strategies Current Medications: Current Medications Medications (Trade) Dose Ordered Sig/Ailyn Start Time Stop Time Status Last Admin Dose Admin Albuterol Sulfate (Ventolin Neb Soln) 2.5 mg STK-MED ONCE 10/26/21 21:23 10/26/21 21:24 DC Albuterol/ Ipratropium (Duoneb) 3 ml 1X ONCE 10/26/21 19:45 10/26/21 19:48 DC 10/26/21 20:00 3 ML Methylprednisolone Sodium Succinate (SOLU-Medrol 125MG VIAL) 125 mg 1X ONCE 10/26/21 21:00 10/26/21 21:01 DC 10/26/21 21:02 125 MG Potassium Chloride (Klor-Con) 20 meq 1X ONCE 10/26/21 22:45 10/26/21 22:46 DC 10/26/21 23:24 20 MEQ Allergies: Allergies: Allergies Coded Allergies Type Severity Reaction Last Updated Verified Penicillins Adverse Reaction Severe seizures 06/30/21 Yes Physical Exam: PE: Constitutional: Well developed, well nourished, no acute distress, non-toxic appearance. 86-year-old male in no apparent distress. Patient is in no respiratory distress. HENT: Normocephalic, atraumatic. Eyes: Conjunctiva normal, no discharge. Neck: Normal range of motion, no stridor. Cardiovascular: No cyanosis appreciated, distal cap refill less than 2 seconds. Regular rate and rhythm. Lungs & Thorax: Patient is in no respiratory distress, no audible adventitious lung sounds appreciated. Normal work of breathing, expiratory wheeze left upper lobe for auscultation otherwise no adventitious lung sounds appreciated Abdomen: Nontender, no abnormalities noted. Skin: Warm, dry, no erythema, no rash. Back: No tenderness, no deformities. Extremities: No tenderness, no cyanosis, no clubbing, ROM intact, bilateral pedal edema 1+, 2+ dorsalis pedis/posterior tibial pulse. Distal cap refill l ess than 2 seconds bilaterally of lower extremities. Neurologic: Alert and oriented X 3, normal motor function, normal sensory function, no focal deficits noted. Psychologic: Affect normal, judgement normal, mood normal. Current Patient Data: Labs: Laboratory Tests Test 10/26/21 18:14 10/26/21 21:08 White Blood Count 6.0 x10^3/uL (4.0-11.0) Red Blood Count 4.34 x10^6/uL (4.30-5.70) Hemoglobin 12.7 g/dL (13.0-17.5) L Hematocrit 38.6 % (39.0-53.0) L Mean Corpuscular Volume 89 fL (79-100) Mean Corpuscular Hemoglobin 29 pg (25-35) Mean Corpuscular Hemoglobin Concent 33 g/dL (31-37) Red Cell Distribution Width 14.2 % (11.5-14.5) Platelet Count 354 x10^3/uL (140-400) Neutrophils (%) (Auto) 97 % (31-73) H Lymphocytes (%) (Auto) 3 % (24-48) L Monocytes (%) (Auto) 1 % (0-9) Eosinophils (%) (Auto) 0 % (0-3) Basophils (%) (Auto) 0 % (0-3) Neutrophils # (Auto) 5.8 x10^3/uL (1.8-7.7) Lymphocytes # (Auto) 0.2 x10^3/uL (1.0-4.8) L Monocytes # (Auto) 0.0 x10^3/uL (0.0-1.1) Eosinophils # (Auto) 0.0 x10^3/uL (0.0-0.7) Basophils # (Auto) 0.0 x10^3/uL (0.0-0.2) Segmented Neutrophils % 97 % (35-66) H Lymphocytes % 2 % (24-48) L Monocytes % 1 % (0-10) Platelet Estimate Adequate (ADEQUATE) Sodium Level 143 mmol/L (136-145) Potassium Level 3.2 mmol/L (3.5-5.1) L Chloride Level 102 mmol/L (98-107) Carbon Dioxide Level 28 mmol/L (21-32) Anion Gap 13 (6-14) Blood Urea Nitrogen 18 mg/dL (8-26) Creatinine 1.2 mg/dL (0.7-1.3) Estimated GFR (Cockcroft-Gault) 69.8 BUN/Creatinine Ratio 15 (6-20) Glucose Level 265 mg/dL (70-99) H Calcium Level 8.5 mg/dL (8.5-10.1) Phosphorus Level 3.4 mg/dL (2.6-4.7) Magnesium Level 1.8 mg/dL (1.8-2.4) Total Bilirubin 0.1 mg/dL (0.2-1.0) L Aspartate Amino Transferase (AST) 12 U/L (15-37) L Alanine Aminotransferase (ALT) 13 U/L (16-63) L Alkaline Phosphatase 81 U/L (46-116) Creatine Kinase 65 U/L (39-308) Creatine Kinase MB (Mass) 0.6 ng/mL (0.0-3.6) Creatine Kinase MB Relative Index % (0-4) Troponin I High Sensitivity 5 ng/L (4-75) BR-Hyl-P-Type Natriuretic Peptide 113 pg/mL (0-449) Total Protein 6.9 g/dL (6.4-8.2) Albumin 2.9 g/dL (3.4-5.0) L Albumin/Globulin Ratio 0.7 (1.0-1.7) L Urine Collection Type Unknown Urine Color Yellow Urine Clarity Clear Urine pH 5.0 (<5.0-8.0) Urine Specific [place] 1.025 (1.000-1.030) Urine Protein Negative mg/dL (NEG-TRACE) Urine Glucose (UA) >=1000 mg/dL (NEG) Urine Ketones (Stick) Negative mg/dL (NEG) Urine Blood Negative (NEG) Urine Nitrite Negative (NEG) Urine Bilirubin Negative (NEG) Urine Urobilinogen Dipstick 0.2 mg/dL (0.2 mg/dL) Urine Leukocyte Esterase Negative (NEG) Urine RBC 0 /HPF (0-2) Urine WBC 1-4 /HPF (0-4) Urine Amorphous Sediment Present /HPF Urine Bacteria 0 /HPF (0-FEW) Urine Hyaline Casts Few /HPF Urine Granular Casts Occasional /HPF Urine Mucus Slight /LPF SARS-CoV-2 Antigen (Rapid) Negative (NEGATIVE) Laboratory Tests 10/26/21 18:14 Laboratory Tests 10/26/21 18:14 Vital Signs: Vital Signs Date Time Temp Pulse Resp B/P (MAP) Pulse Ox O2 Delivery O2 Flow Rate FiO2 10/26/21 22:49 80 124/60 (81) 93 Room Air 10/26/21 21:40 2.0 10/26/21 19:15 97.3 26 97.3 EKG: EKG: EKG performed at 2021 by ED nursing staff shows a normal sinus rhythm without other ectopy, heart rate 93 bpm, DC interval 0.140, QTc interval 0.435, no acute STEMI, no ACS, no acute ischemia appreciated, EKG interpreted by ED attending physician Dr. Walker. Radiology/Procedures: Radiology/Procedures: REASON: Shortness of breath PROCEDURE: CHEST AP ONLY EXAM: AP View of the chest DATE: 10/26/2021 7:58 PM INDICATION: Reason: Shortness of breath / Spl. Instructions: / History: COMPARISON: 08/07/2021 FINDINGS: Cardiomediastinal stable. Linear opacities left lung base likely scarring/atelectasis. Emphysematous changes are seen. No pleural effusion or pneumothorax. IMPRESSION: 1. Linear opacities left lung base likely scarring/atelectasis. Electronically signed by: West Herrera MD (10/26/2021 8:56 PM) [facility]: REG ER ORD. PHYSICIAN: NAIMA WONG APRN REASON: Bilateral foot swelling with pain rule out lower extremity DVT PROCEDURE: VENOUS LOWER EXT BILATERAL INDICATION: Reason: Bilateral foot swelling with pain rule out lower extremity DVT / Spl. Instructions: / History: COMPARISON: None. TECHNIQUE: Grayscale, color and doppler ultrasound images were obtained of the bilateral lower extremity venous vasculature. RIGHT: No thrombus identified in the common femoral vein, femoral vein, popliteal vein or visualized calf veins. LEFT: No thrombus identified in the common femoral vein, femoral vein, popliteal vein or visualized calf veins. IMPRESSION: * No thrombus identified in deep venous system of bilateral lower extremities. Electronically signed by: Tha Sparks MD (10/26/2021 11:17 PM) DESKTOP- [id number] Course & Med Decision Making: Course & Med Decision Making Pertinent Labs and Imaging studies reviewed. (See chart for details) 86-year-old male, vital signs reviewed, presents to the emergency department concerning shortness of breath and bilateral foot swelling. Physical examin ation concerning for exacerbation of COPD, patient does have bilateral lower extremity pitting edema, this is most likely from venous insufficiency, will order COVID-19 rapid and PCR testing, blood pressure, cardiac, pulse ox monitoring, saline lock, twelve-lead EKG, chest x-ray, blood cultures x2, CBC, cardiac isoenzymes, CMP, NT proBNP, magnesium, phosphorus, troponin I high- sensitivity, urinalysis assay. Patient has a history of emphysema COPD, will order DuoNeb treatment, 125 mg Solu-Medrol IV, venous Doppler bilateral extremities to rule out DVT. Patient's labs concerning for hypokalemia of 3.2 otherwise no concerning labs. Patient's chest x-ray nonconcerning for acute process. Upon reevaluation of the patient, the patient remains in no respiratory distress, reports he might feel better if he had another breathing treatment, lung sounds clear to auscultate all lung chaudhary, wheezing no longer appreciated per auscultation. Patient is not hypoxic, will order additional albuterol breathing treatment. Venous Doppler bilateral lower extremities not concerning for DVT, discussed findings with patient, will discharged home with prescription for oral prednisone, strict follow-up with primary care to address bilateral lower extremity swelling, discussed with patient to raise legs above head to assist and decreasing the swelling process, patient gave verbal understanding of and is amenable to ED discharge planning. Discussed with the patient all findings and diagnostic testing as well as the need to follow-up with their primary care provider for further evaluation and treatment or return to the ED if any new or worsening symptoms. Strict return precautions were also discussed at length, the patient voiced understanding and agreement with the discharge planning. The patient was nontoxic in appearance, in no apparent distress, and hemodynamically stable at the time of disposition. Kayleeon Disclaimer: Heydi Disclaimer: This electronic medical record was generated, in whole or in part, using a voice recognition dictation system. Departure Departure Impression: Primary Impression: COPD exacerbation Additional Impression: Pedal edema Disposition: HOME / SELF CARE / HOMELESS Condition: GOOD Referrals: Brayan DIAZ MD (PCP) Patient Instructions: Chronic Obstructive Pulmonary Disease, Peripheral Edema Additional Instructions: You were seen today in the emergency department for shortness of breath and feet swelling. Your lab work was not concerning for infectious process, you were given a steroid through your IV and breathing treatments which improved your breathing status. Your feet swelling were evaluated by Doppler to look for blood clots, there were no blood clots appreciated. Please elevate your feet at home to help reduce swelling. Please follow-up with Dr. Diaz this coming week to address lower extremity swelling. I am prescribing you an oral steroid to take once a day over the next [address] Diaz know you are given the steroid prescription. Return to the emergency department for worsening symptoms other concerns. Thank you for visiting our Emergency Department. It was a pleasure taking care of you today in the emergency department and we appreciate you trusting us with your care. If any additional problems come up don't hesitate to return to visit us. Please follow up with your primary care provider so they can plan additional care if needed and know about the problem that you had. If symptoms worsen come back to the Emergency Department. Any concerning symptoms that start such as chest pain, shortness of air, weakness or numbness on one side of the body, running high fevers or any other concerning symptoms return to the ER. EMERGENCY DEPARTMENT GENERAL DISCHARGE INSTRUCTIONS Thank you for coming to [facility] Emergency Department (ED) today and trusting us with you care. We trust that you had a positive experience in our Emergency Department. If you wish to speak to the department management, you may call the Director at [phone]. YOUR FOLLOW UP INSTRUCTIONS ARE FOLLOWS: 1. Do you have a private Doctor? If you do not have a private doctor, please ask for a resource list of physicians or clinics that may be able to assist you with follow up care. 2. The Emergency Physicain has interpreted your x-rays. The X-Ray specialist will also review them. If there is a change in the findings, you will be notified in 48 hours when at all possible. 3. A lab test or culture has been done, your results will be reviewed and you will be notified if you need a change in treatment. ADDITIONAL INSTRUCTIONS AND INFORMATION: 1. Your care today has been supervised by a physician who is specially trained in emergency care. Many problems require more than one evaluation for a complete diagnosis and treatment. We recommend that you schedule your follow up appointment as recommended to ensure complete treatment of you illness or injury. If you are unable to obtain follow up care and continue to have a problem, or if your condition worsens, we recommend that you return to the ED. 2. We are not able to safely determine your condition over the phone nor are we able to give sound medical advice over the phone. For these safety reasons, if you call for medical advice we will ask you to come to the ED for further evaluation. 3. If you have any questions regarding these discharge instructions please call the ED at [phone]. SAFETY INFORMATION: In the interest of safety, wellness, and injury prevention; we encourage you to wear your sealbelt, if you smoke; quite smoking, and we encourage family to use a protective helmet for bicycling and other sporting events that present an increased risk for head injury. IF YOUR SYMPTOMS WORSEN OR NEW SYMPTOMS DEVELOP, OR YOU HAVE CONCERNS ABOUT YOUR CONDITION; OR IF YOUR CONDITION WORSENS WHILE YOU ARE WAITING FOR YOUR FOLLOW UP APPOINTMENT; EITHER CONTACT YOUR PRIMARY CARE DOCTOR, THE PHYSICIAN WHOSE NAME AND NUMBER YOU WERE GIVEN, OR RETURN TO THE ED IMMEDIATELY. Scripts Prednisone (PREDNISONE) 50 Mg Tablet 1 TAB PO DAILY for breathing problems, #5 TAB 0 Refills Prov: NAIMA WONG APRN 10/26/21 NAIMA WONG APRN Oct 26, 2021 23:35
[2021-10-26] MEDS ORDERED: PRED50TA PO (23:54)
[2021-10-27 00:19] VITALS: BP 124/66
--- NOTE | 2021-10-27 06:42 | EKG ---
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
--- NOTE | 2021-10-27 18:43 | NUR ---
IP: Attempted to contact pt concerning covid results. No answer, voicemail box is full. Unable to leave message.
--- NOTE | 2021-10-30 10:58 | NUR ---
IP: Attempted a second time to contact pt concerning covid results. No answer, voicemail box is full. No message left.
== END 2021-10-27 00:30 | disposition home or self-care (01) ==
LOC: ER 19:07
DX: J44.1 Chronic obstructive pulmonary disease with (acute) exacerbation (principal); R60.0 Localized edema; Z86.79 Personal history of other diseases of the circulatory system; Z88.0 Allergy status to penicillin; Z20.822 Contact with and (suspected) exposure to COVID-19
CPT/HCPCS: 36415; 71045; 80053; 81001; 82553; 83735; 83880; 84100; 84484; 85007; 85025; 87040; 87426; 93005; 93970; 94640; 94644; 94760; 96374; 99285; J2930; J7613; U0003; U0005